=== PATIENT | female | born 1965 | race Two or more races ===

== ENCOUNTER → 2024-12-19 | Outpatient (CLI) | payer MEDICAID, SELFPAY ==
--- NOTE | 2024-12-19 17:19 | XR_ITS ---
Examination: Abdomen sonogram, complete Date and time of exam: December 19, 2024, 1722 hours Comparison February 19, 2024 INDICATIONS: Palpable lump in the upper abdomen 3 months. Technique: Multiple real-time grayscale transabdominal sonographic images of the abdomen have been obtained. Findings: Absent gallbladder Common bile duct 0.5 cm Pancreatic head 3.3 cm Aorta proximally visualized nonenlarged Mild hepatomegaly 17 cm fatty infiltration Normal hepatopedal portal venous flow Patent IVC Right kidney 10.3 cm cortex 1.6 cm Left kidney 11.4 cm and according to 0.0 cm Mild renal parenchymal scar formation Spleen 7.3 cm Possible hernia at the area of concern site in the anterior right upper abdominal wall IMPRESSION: Recommend CT scan abdomen post intravenous contrast follow-up to confirm hernia defect in the anterior upper right abdomen
== END | disposition home or self-care (01) ==
PROVIDERS: PCP Nurse Practitioner Family; Referring Provider Nurse Practitioner Family; Visit Provider Nurse Practitioner Family
DX: K46.9 Unspecified abdominal hernia without obstruction or gangrene (principal)
CPT/HCPCS: 76700

== ENCOUNTER → 2025-02-06 | Outpatient (CLI) | payer MEDICAID, SELFPAY ==
--- NOTE | 2025-02-06 | XR_ITS ---
Examination: Knee bilateral, 6 views Technique: Knee AP, lateral, oblique each knee total 6 views Date and time of exam: February 06, 2025 1348 hours INDICATIONS: Bilateral knee pain beginning 4 months ago. FINDINGS: Prominent osteopenia Advanced bilateral tricompartment osteoarthritis No fractures or dislocations IMPRESSION: Bilateral advanced tricompartment osteoarthritis
== END | disposition home or self-care (01) ==
LOC: CDIM 13:23
PROVIDERS: PCP Nurse Practitioner Family; Referring Provider Nurse Practitioner Family; Visit Provider Nurse Practitioner Family
DX: M17.0 Bilateral primary osteoarthritis of knee (principal)
CPT/HCPCS: 73562

== ENCOUNTER 2025-04-04 08:37 | Outpatient (AMB) | payer MEDICAID, SELFPAY ==
[2025-04-04 09:02] VITALS: BP 116/74; PULSE 95; RESP 18; TEMP 35.9; O2SAT 98; BMI 37.3
--- NOTE | 2025-04-04 09:02 | PD.ORTHCLVIS ---
Vital signs 04/04/25 09:02 Height 1.57 m Height Method Stated Weight 92.703 kg Weight Measurement Method Standing Scale BMI 37.3 BP 116/74 Blood Pressure Source Automatic Cuff Blood Pressure Location Left Upper Arm Position Sitting Respiration 18 Pulse 95 Pulse Source Monitor Temp 96.7 F L Temp Source Temporal Artery Scan Pulse Oximetry (%) 98 Oxygen Delivery Method Room Air Med/Allergies Allergies & Medications Allergies diclofenac Allergy (Severe, Verified 04/04/25 09:02) Hives Medication Reconciliation lisinopril 10 mg tablet 10 mg PO QDAY #30 tabs 04/12/20 [Rx Confirmed 04/04/25] metformin 500 mg tablet 1,000 mg (2 x 500 mg) PO BID 30 days #120 tabs 04/12/20 [Rx Confirmed 04/04/25] cyclobenzaprine 10 mg tablet 10 mg PO BID #14 tabs 09/18/23 [Rx Confirmed 04/04/25] meloxicam 7.5 mg tablet 7.5 mg PO QDAY #14 tabs 09/18/23 [Rx Confirmed 04/04/25] Exam Exam Patient is in no acute distress and is cooperative with the examination today. Breathing is nonlabored. In no respiratory distress. Bilateral extremities were evaluated and demonstrates sensation intact to light touch. Palpable pedal pulses are present. No significant edema is present. Bilateral hips were examined. The patient has no pain with log roll of the hips. Internal rotation to 30 degrees and external rotation to 30 degrees is painless. Negative FADIR. The left knee was examined. The left knee is in varus alignment. Range of motion from 0-115 degrees. Knee is stable to varus and valgus as well as AP translation with <5mm. Patient has a negative McMurrays. There is no pain with patellofemoral compression and no crepitus noted. The knee is tender to palpation medially. The right knee was also examined. The right knee is in varus alignment. Range of motion from 0-120 degrees. Knee is stable to varus and valgus as well as AP translation with <5mm. Patient has a negative McMurrays. There is no pain with patellofemoral compression and no crepitus noted. The knee is tender to palpation medially. X-rays demonstrates complete joint space narrowing medially and varus Assessment and Plan Problem List (1) Degenerative arthritis of knee, bilateral: Status: Acute Plan: Patient is a pleasant 59-year-old female with bilateral knee pain and bilateral knee arthritis. Her diabetes is well-controlled at 5.8. We discussed weight loss in great detail and she has made an attempt to lose weight. The pain is affecting her quality life for over a decade. We thus discussed total knee replacement is a reasonable option and we will start on the right as this is significantly loose The nature and purpose of the total knee replacement, alternative method(s) of treatment, the material risks involved, and the possibility of complications were fully explained to the patient. The patient does NOT have any of the following contraindications to TKA: - Active infection of the knee joint, OR - Active systemic bacteremia, OR - Active skin infection or open wound at surgical site, OR - Neuropathic arthritis, OR - Severe, rapidly progressive neurological disease, OR - Severe medical condition that makes risks of surgery outweigh the potential benefit The patient was told the most common risks and complications associated with a total knee replacement include, but are not limited to: blood clots in the leg, fatal pulmonary embolism, dislocation of the prosthesis, intraoperative and postoperative fractures of the femur or tibia, infection, failure of the prosthesis or grafting materials, complications from anesthesia, reactions to blood transfusions, postoperative leg length inequality, instability of the knee replacement, nerve damage or injury, vascular injury, delayed wound healing, infection, other injury or even . In addition, there are risks associated with anesthesia given during this operation. Also, the patient was told that after undergoing a total knee replacement there may still be persistent pain or disability. The patient was informed that the success of this operation in part depends upon the mechanical devices which are going to be implanted and that these devices can fail or malfunction, and may need to be repaired or replaced and there are no guarantees as to the longevity of this device or its parts and that it or its parts could fail prematurely. The patient was also notified that during the course of surgery, there may be a need to use bone graft from donors, and that any bone graft used will be carefully screened for communicable diseases, including AIDS, hepatitis, Figueroa-Creutzfeldt, or other diseases, but despite the screening procedures, there is a small chance that they could contract one of these diseases. Finally, the patient was asked to follow completely and fully with all advice and recommended treatments, and that recovery and ultimate outcome are affected by their compliance with recommended treatment. We discussed the risks, benefits and treatment alternatives, and the patient is interested in proceeding with surgery. We will try to set this up as expeditiously as possible. Office Procedures GNS Level of Care Nursing/Assessment Patient Status: Initial/New Patient Nursing Assessment/Reassesment: Medication Reconciliation, Update PMH in EMR and Vital Signs Coordination of Care: Complex Care and Chronic Disease 1-5, Education Complex Pt/Fam, Consent,records obtained, informed consent, 1 Ins Authorization, Lab and Imaging orders, Results/Orders obtained and Staff clarify orders Special Needs: Language special needs New Patient Charge New Patient Point Assignment: 1124 New Patient Point Charge: ETCHER ELECTROLYTIC Level 4 ([id number]) MA Intake Visit Data Collection New Patient or Established: New Patient (never been to [facility]) Reason for Visit:: BILATERAL KNEE PAIN Seen by Clinical Staff ONLY (RN/MA): No Head Orthopedic Team Physician Required: Yes PCP or OBGYN visit in last 3 months: Yes Hx Now: No Do You Feel Safe at Home: Yes Authorities Contacted: N/A Questionairres Past Medical History Past Medical History Have you ever been diagnosed with any of the following: Cardiology Problems Hypercholesterolemia: Yes Congestive Heart Failure: No Hypertension: Yes Hypotension: Yes Respiratory Problems Chronic Obstructive Pulmonary Disease (COPD): No Smoking: No Smoking Cessation Counseling: No Smoking Exposure: No Genital/Urinary Problems Renal Disease: No Endocrine Problems Diabetes Mellitus Type 1: Yes Diabetes Mellitus Type 2: No Hyperthyroidism: Yes Subjective Visit Visit for: new patient and knee (BILATERAL) Immunization / Flu Flu Vaccine in the Last 12 Months: No Flu Vaccine Exclusion Criteria: Refused by Patient History of Present Illness Chief complaint: BILATERAL KNEE PAIN Date of injury / onset of symptoms: 10+ YEARS Patient is a pleasant 59-year-old female with right greater than left knee pain that has been ongoing for over 20 years. Has progressively worsened. She has made an attempt to lose weight and has lost weight since her visit with her primary care doctor. She has tried multiple injections including over 3 in each knee as well as ibuprofen and diclofenac and home exercise program. The pain continues to increase. The pain is affecting her quality life happiness. Personal History Occupation: [employer] BMI Counceling provided: Yes Pain Pain level (0-10): 9 Pain duration: ALL DAY Pain location: inside (medial), outside (lateral) and anterior Pain quality: sharp, dull, aching and other (specify) (SWELLING) Pain timing: night, increases with activity and stairs Associated signs & symptoms: numbness and weakness Ambulatory data Ambulatory device: none Treatments Number of previous injections: 2 Improvement with previous injections: No Number of Physical Therapy sessions: 0 Improvement with PT: No Improvement with NSAIDS: no Review of Systems Review of Systems: All systems negative unless otherwise noted in HPI.
--- NOTE | 2025-04-04 09:03 | XR_ITS ---
Examination: Bilateral knees 2 views Right lateral knee left lateral knee 2 views Bilateral axial knees single view TECHNIQUE: Bilateral AP knees standing single view, bilateral PA knees standing single view flexion Standing right lateral knee left lateral knee 2 views Bilateral axial knees single view total 5 views Date and time: April 04, 2025 0915 hours INDICATIONS: Bilateral knee pain one year getting worse FINDINGS: Significant osteopenia Advanced narrowing [id number] medial joint spaces bilaterally Advanced osteoarthritis patellofemoral and lateral joint spaces No fractures IMPRESSION: Advanced bilateral tricompartment osteoarthritis including severe narrowing, [id number], medial joint spaces bilaterally
== END 2025-04-04 09:08 | disposition home or self-care (01) ==
PROVIDERS: PCP Nurse Practitioner Family; Referring Provider Nurse Practitioner Family; Supervising Provider Orthopaedic Surgery Adult Reconstructive Orthopaedic Surgery; Visit Provider Orthopaedic Surgery Adult Reconstructive Orthopaedic Surgery
DX: M17.0 Bilateral primary osteoarthritis of knee (principal); M25.562 Pain in left knee; M25.561 Pain in right knee; E78.00 Pure hypercholesterolemia, unspecified; I10 Essential (primary) hypertension; E10.9 Type 1 diabetes mellitus without complications
CPT/HCPCS: 73564; 99204; G0463

== ENCOUNTER → 2025-04-06 | Outpatient (CLI) | payer MEDICAID, SELFPAY ==
--- NOTE | 2025-04-06 | XR_ITS ---
Examination: PA chest single view TECHNIQUE: Upright PA chest single view Date and time: April 06, 2025 0755 hours INDICATIONS: Preop knee surgery, history chronic SOB COMPARISON: April 16, 2020 FINDINGS: Normal heart size. Lungs are clear. Moderate osteopenia IMPRESSION: No active disease.
== END | disposition home or self-care (01) ==
PROVIDERS: PCP Nurse Practitioner Family; Referring Provider Nurse Practitioner Family; Visit Provider Nurse Practitioner Family
DX: Z01.818 Encounter for other preprocedural examination (principal)
CPT/HCPCS: 71045

== ENCOUNTER → 2025-05-01 | Outpatient (CLI) | payer MEDICAID, SELFPAY ==
--- NOTE | 2025-05-01 12:00 | XR_ITS ---
Examination: CT right lower extremity, without contrast. 2-D sagittal reconstructions. 2-D coronal reconstructions. 3-D reconstructions. Date and time of exam:May 01, 2025 1114 hours INDICATIONS: Diagnosis primary unilateral osteoarthritis right knee, right knee pain 2 years CTDI: vol (mGy):11.1 DLP: (mGycm):757 Technique: Multiple 1.25 mm axial sections of the right lower extremity without intravenous contrast have been obtained. 2-D sagittal and coronal reconstructions have been obtained. 3-D reconstructions have been obtained. Low dose protocols were performed. One or more of the following dose reduction techniques were used; automated exposure control, adjustment of the mA and/or KV according to patient size, use of iterative reconstruction technique. Findings: Moderate osteopenia Mild to moderate narrowing right hip joint No right hip fracture or dislocation, no avascular necrosis Severe right knee tricompartment osteoarthritis Severe narrowing medial joint space right knee Prominent osteopenia No fracture or dislocation IMPRESSION: Severe right knee tricompartment osteoarthritis
== END | disposition home or self-care (01) ==
PROVIDERS: PCP Nurse Practitioner Family; Referring Provider Orthopaedic Surgery Adult Reconstructive Orthopaedic Surgery; Visit Provider Orthopaedic Surgery Adult Reconstructive Orthopaedic Surgery
DX: M17.11 Unilateral primary osteoarthritis, right knee (principal)
CPT/HCPCS: 73700

== ENCOUNTER 2025-05-02 13:56 | Outpatient (AMB) | payer MEDICAID, SELFPAY ==
--- NOTE | 2025-05-02 14:36 | PD.ORTHCLVIS ---
Vital signs 05/02/25 14:37 Height 1.57 m Height Method Measured Weight 89.528 kg Weight Measurement Method Standing Scale BMI 36.3 BP 120/81 Blood Pressure Source Automatic Cuff Blood Pressure Location Left Upper Arm Position Sitting Respiration 18 Pulse 88 Pulse Source Monitor Temp 97.7 F Temp Source Temporal Artery Scan Pulse Oximetry (%) 94 L Oxygen Delivery Method Room Air Med/Allergies Allergies & Medications Allergies diclofenac Allergy (Severe, Verified 05/02/25 14:38) Hives Medication Reconciliation lisinopril 10 mg tablet 10 mg PO QDAY #30 tabs 04/12/20 [Rx Confirmed 05/02/25] metformin 500 mg tablet 1,000 mg (2 x 500 mg) PO BID 30 days #120 tabs 04/12/20 [Rx Confirmed 05/02/25] cyclobenzaprine 10 mg tablet 10 mg PO BID #14 tabs 09/18/23 [Rx Confirmed 05/02/25] meloxicam 7.5 mg tablet 7.5 mg PO QDAY #14 tabs 09/18/23 [Rx Confirmed 05/02/25] Exam Exam Patient is in no acute distress and is cooperative with the examination today. Breathing is nonlabored. In no respiratory distress. Bilateral extremities were evaluated and demonstrates sensation intact to light touch. Palpable pedal pulses are present. No significant edema is present. Bilateral hips were examined. The patient has no pain with log roll of the hips. Internal rotation to 30 degrees and external rotation to 30 degrees is painless. Negative FADIR. The left knee was examined. The left knee is in varus alignment. Range of motion from 0-115 degrees. Knee is stable to varus and valgus as well as AP translation with <5mm. Patient has a negative McMurrays. There is no pain with patellofemoral compression and no crepitus noted. The knee is tender to palpation medially. The right knee was also examined. The right knee is in varus alignment. Range of motion from 0-120 degrees. Knee is stable to varus and valgus as well as AP translation with <5mm. Patient has a negative McMurrays. There is no pain with patellofemoral compression and no crepitus noted. The knee is tender to palpation medially. X-rays demonstrates complete joint space narrowing medially and varus Assessment and Plan Problem List (1) Degenerative arthritis of knee, bilateral: Status: Acute Plan: Patient is a pleasant 59-year-old female with bilateral knee pain and bilateral knee arthritis. Her diabetes is well-controlled at 5.8. We discussed weight loss in great detail and she has made an attempt to lose weight. The pain is affecting her quality life for over a decade. We thus discussed total knee replacement is a reasonable option and we will start on the right. The nature and purpose of the total knee replacement, alternative method(s) of treatment, the material risks involved, and the possibility of complications were fully explained to the patient. The patient does NOT have any of the following contraindications to TKA: - Active infection of the knee joint, OR - Active systemic bacteremia, OR - Active skin infection or open wound at surgical site, OR - Neuropathic arthritis, OR - Severe, rapidly progressive neurological disease, OR - Severe medical condition that makes risks of surgery outweigh the potential benefit The patient was told the most common risks and complications associated with a total knee replacement include, but are not limited to: blood clots in the leg, fatal pulmonary embolism, dislocation of the prosthesis, intraoperative and postoperative fractures of the femur or tibia, infection, failure of the prosthesis or grafting materials, complications from anesthesia, reactions to blood transfusions, postoperative leg length inequality, instability of the knee replacement, nerve damage or injury, vascular injury, delayed wound healing, infection, other injury or even . In addition, there are risks associated with anesthesia given during this operation. Also, the patient was told that after undergoing a total knee replacement there may still be persistent pain or disability. The patient was informed that the success of this operation in part depends upon the mechanical devices which are going to be implanted and that these devices can fail or malfunction, and may need to be repaired or replaced and there are no guarantees as to the longevity of this device or its parts and that it or its parts could fail prematurely. The patient was also notified that during the course of surgery, there may be a need to use bone graft from donors, and that any bone graft used will be carefully screened for communicable diseases, including AIDS, hepatitis, Figueroa-Creutzfeldt, or other diseases, but despite the screening procedures, there is a small chance that they could contract one of these diseases. Finally, the patient was asked to follow completely and fully with all advice and recommended treatments, and that recovery and ultimate outcome are affected by their compliance with recommended treatment. We discussed the risks, benefits and treatment alternatives, and the patient is interested in proceeding with surgery. We will try to set this up as expeditiously as possible. Office Procedures GNS Level of Care Nursing/Assessment Patient Status: Established Patient Nursing Assessment/Reassesment: Medication Reconciliation, Orthostatic Vitals and Update PMH in EMR Coordination of Care: Complex Care and Chronic Disease 1-5, Education Complex Pt/Fam, Consent,records obtained, informed consent, Results/Orders obtained and Staff clarify orders Special Needs: Language special needs Established Patient Charge Established Patient Point Assignment: 90 Established Patient Point Charge: EP Level 3 (80-115) MA Intake Visit Data Collection New Patient or Established: Established Patient (seen at [facility] within 3 years) Reason for Visit:: PRE OP RIGHT TKA Seen by Clinical Staff ONLY (RN/MA): No Steamship Agent Required: Yes PCP or OBGYN visit in last 3 months: Yes Hx Now: No Do You Feel Safe at Home: Yes Authorities Contacted: N/A Questionairres Past Medical History Past Medical History Have you ever been diagnosed with any of the following: Cardiology Problems Hypercholesterolemia: Yes Congestive Heart Failure: No Hypertension: Yes Hypotension: Yes Respiratory Problems Chronic Obstructive Pulmonary Disease (COPD): No Smoking: No Smoking Cessation Counseling: No Smoking Exposure: No Genital/Urinary Problems Renal Disease: No Endocrine Problems Diabetes Mellitus Type 1: Yes Diabetes Mellitus Type 2: No Hyperthyroidism: Yes Subjective Visit Visit for: follow up visit and knee Immunization / Flu Flu Vaccine in the Last 12 Months: No Flu Vaccine Exclusion Criteria: Refused by Patient History of Present Illness Chief complaint: BILATERAL KNEE PAIN Date of injury / onset of symptoms: 10+ YEARS Patient is a pleasant 59-year-old female with right greater than left knee pain that has been ongoing for over 20 years. Has progressively worsened. She has made an attempt to lose weight and has lost weight since her visit with her primary care doctor. She has tried multiple injections including over 3 in each knee as well as ibuprofen and diclofenac and home exercise program. The pain continues to increase. The pain is affecting her quality life and happiness. Personal History Occupation: [employer] BMI Counceling provided: Yes Additional comments: WALKER WAS GIVEN TO PT FOR SX Pain Pain level (0-10): 9 Pain duration: ALL DAY Pain location: inside (medial), outside (lateral) and anterior Pain quality: sharp, dull, aching and other (specify) (SWELLING) Pain timing: night, increases with activity and stairs Associated signs & symptoms: numbness and weakness Ambulatory data Ambulatory device: none Treatments Number of previous injections: 2 Improvement with previous injections: No Number of Physical Therapy sessions: 0 Improvement with PT: No Improvement with NSAIDS: no Review of Systems Review of Systems: All systems negative unless otherwise noted in HPI.
[2025-05-02 14:37] VITALS: BP 120/81; PULSE 88; RESP 18; TEMP 36.5; O2SAT 94; BMI 36.3
== END 2025-05-02 14:46 | disposition home or self-care (01) ==
PROVIDERS: PCP Nurse Practitioner Family; Referring Provider Nurse Practitioner Family; Supervising Provider Orthopaedic Surgery Adult Reconstructive Orthopaedic Surgery; Visit Provider Orthopaedic Surgery Adult Reconstructive Orthopaedic Surgery
DX: M17.0 Bilateral primary osteoarthritis of knee (principal); M25.562 Pain in left knee; M25.561 Pain in right knee; I10 Essential (primary) hypertension; E78.00 Pure hypercholesterolemia, unspecified; E10.9 Type 1 diabetes mellitus without complications
CPT/HCPCS: 99213; G0463

== ENCOUNTER 2025-05-08 07:05 | Day surgery (SDC) | payer MEDICAID, SELFPAY ==
[2025-05-04 07:01] VITALS: BMI 37.2
[2025-05-04 08:15] LABS: Basophils # (Auto) 0.0 Thou/mm3 (0.0-0.2); Basophils % (Auto) 0 % (0-2.5); Eosinophils # (Auto) 0.0 Thou/mm3 (0.0-0.5); Eosinophils % (Auto) 0 % (0-10); Hematocrit 42.6 % (36.0-46.0); Hemoglobin 14.5 g/dL (12.0-16.0); Immature Granulocytes Auto 0.29 Thou/mm3 (0.00-0.00); Lymphocytes # (Auto) 2.5 Thou/mm3 (1.0-4.8); Lymphocytes % (Auto) 24 % (10-50); Mean Corpuscular HGB Conc 34.0 g/dl (31.0-37.0); Mean Corpuscular Hemoglobin 33.3 pg (25.0-35.0); Mean Corpuscular Volume 98 fL (80-100); Monocytes # (Auto) 0.8 Thou/mm3 (0.0-0.8); Monocytes % (Auto) 8 % (0-12); Neutrophils # (Auto) 6.7 Thou/mm3 (1.8-7.7); Neutrophils % (Auto) 65 % (37-80); Nucleated Red Blood Cell # 0.00 Thou/mm3 (0.00-0.00); Nucleated Red Blood Cell % 0 /100 WBC (0); Platelet Count 264 Thou/mm3 (140-440); RDW Standard Deviation 47.1 fL (36.4-46.3); Red Blood Count 4.36 Miln/mm3 (4.00-5.20); White Blood Count 10.3 Thou/mm3 (3.6-11.0)
[2025-05-04 08:34] LABS: Alanine Aminotransferase 39 U/L (10-49); Albumin, Serum 4.3 gm/dL (3.5-5.0); Albumin/Globulin Ratio 2.0 (1.2-2.2); Alkaline Phosphatase 98 U/L (46-116); Anion Gap 9 (7-16); Aspartate Amino Transferase 23 U/L (0-34); BUN/Creatinine Ratio 17 Ratio (12-20); Bilirubin,Total 0.3 mg/dL (0.3-1.2); Blood Urea Nitrogen 10 mg/dL (9-23); Calcium 9.5 mg/dL (8.3-10.6); Calcium (Corrected) 9.5 mg/dL (8.5-10.1); Carbon Dioxide 27.7 mMol/L (20.0-31.0); Chloride 107 mMol/L (98-107); Creatinine (Component) 0.6 mg/dL (0.6-1.3); Estimated Creatinine Clearance 102.7 mL/min (>60); Globulin 2.1 gm/dL (2.3-3.5); Glucose 137 mg/dL (74-106); Osmolality,Calculated 287 (275-295); Potassium 4.0 mMol/L (3.4-5.1); Sodium 144 mMol/L (136-145); Total Protein 6.4 gm/dL (5.7-8.2); eGFR > 60 See Note
[2025-05-04 10:01] LABS: INR 0.9 (0.9-1.3); Partial Thromboplastin Time 21.5 Seconds (22.0-36.0); Prothrombin Time 10.2 Seconds (9.0-12.2)
[2025-05-08] VITALS (16 sets, daily range): BP systolic 105–157; BP diastolic 58–90; PULSE 65–85; RESP 12–20; TEMP 36.3–37; O2SAT 96–100; BMI 37.4; BMI 13.0
--- NOTE | 2025-05-08 07:47 | XR_ITS ---
Examination: Right knee 2 views Technique one AP lateral right knee 2 views Date and time: May 08, 2025 1128 hours INDICATIONS: Postop knee replacement today FINDINGS: Total right knee arthroplasty. Satisfactory alignment. No fracture. Prominent osteopenia. IMPRESSION: Total right knee arthroplasty with satisfactory alignment
[2025-05-08] MEDS: RINGERS LACTATED 1000 ML 1,000 ML 20 ML IV (08:02)
[2025-05-08] MEDS: ACETAMINOPHEN 325 MG TABLET 650 MG PO (08:03)
[2025-05-08] MEDS: PREGABALIN 75 MG CAPSULE PO (08:04)
--- NOTE | 2025-05-08 08:17 | SUR.PREOP ---
Patient expressed gratitude for prayer before their procedure.
--- NOTE | 2025-05-08 10:29 | ESOP_ITS ---
Date of Procedure 05/08/25 Pre Op Diagnosis right knee osteoarthritis Post Op Diagnosis right knee osteoarthritis Procedure right total knee replacement papa Findings full thickness cartilage loss and osteophytes Procedure Description Indication: The patient has a long history of right knee pain. X-rays show degenerative arthritis involving the knee. Over the past several years the patient has had increasing pain, progressive limitation in function. He has failed conservative measures including activity modification, physical therapy, injections, anti- inflammatories, and assistive devices. After a lengthy discussion of the risks and benefits, the patient presents now for total knee replacement. The nature and purpose of the total knee replacement, alternative method(s) of treatment, the material risks involved, and the possibility of complications were fully explained to the patient. The patient was told the most common risks and complications associated with a total knee replacement include, but are not limited to blood clots in the leg, fatal pulmonary embolism, dislocation of the prosthesis, intraoperative and postoperative fractures of the femur or tibia, infection, failure of the prosthesis or grafting materials, complications from anesthesia, reactions to blood transfusions, postoperative leg length inequality, instability of the knee replacement, nerve damage or injury, vascular injury, delayed wound healing, infections, other injury or even . In addition, there are risks associated with anesthesia given during this operation, temporary or permanent numbness on the skin lateral to the incision can be a complication unique to total knee surgery, and kneeling can be painful after knee replacement surgery. Also, the patient was told that after undergoing a total knee replacement there may still be pain or disability. We discussed with the patient that we will be using a robot-assisted technology. We discussed that there is a possibility of converting to manual instrumentation. The patient was informed that the success of this operation in part depends upon the mechanical devices which are going to be implanted and that these devices can fail or malfunction, and may need to be repaired or replaced and there are no guarantees as to the longevity of this device or its part and that it or its parts could fail prematurely. Finally, the patient was asked to follow completely and fully with all advice and recommended treatments, and that recovery and ultimate outcome are affected by their compliance with recommended treatment. Surgical technique: Patient was marked and consented in the pre-operative area. The patient was brought to the operating room and placed on the operating table in a supine position. Prior to positioning, a timeout procedure was performed between the surgeon, the anesthesiologist, and the nursing staff where the patient and the operative side were identified and confirmed. After adequate general anesthetic was obtained, the right lower extremity was prepped and draped in the usual sterile fashion. A weight based dose of Cefazolin were administered within 1 hour prior to incision. The robot was preregistered and calibrated before the incision. The extremity was exsanguinated with an esmarch badge and tourniquet inflated to 250mmHg. A midline incision was made. A median parapatellar arthrotomy was made. The patella was subluxed laterally. A medial release was performed to expose the medial tibia. His femoral and tibial pins were placed through an intra incisional manner for both cases. Every effort was made to ensure that the distalmost aspect of the pin was hung in the second cortex. The arrays were then tightened several times to ensure that it was fixed for the remainder of the case. Both femoral and tibial checkpoints were then placed. We then went through the registration process of the bone. We then assessed the knee deformity and attempted to correct it. We also used the robot to aid in judging laxity in both extension and flexion. Final based on laxity and alignment we changed the preoperative assessment to obtain proper proper implant positioning and to correct deformity. Attention was then placed to the tibia. We made a tibial cut using the robot ensuring that both the MCL and the patella tendon were protected with retractors. We then went to the femur and made the posterior cut followed by the anterior cut and the anterior chamfer. The bone was then removed and we made a distal femur cut and a posterior chamfer cut. We verified all cuts. A trial reduction was performed with a size 3 femoral component and a size 2 keeled tibial component. T The patella tracked centrally, and no lateral retinacular release was necessary. The trial implants were removed. The arrays, pins, and checkpoints were all removed. We performed a verification that all p ins were removed. The cut bone surfaces were lavaged. A size 3 right femoral component, a size 2 keeled tibial component were impacted into position. The knee was felt to be well balanced in the sagittal and coronal plane. The final 2x11 mm cruciate- substituting articular insert was impacted into the tibial tray. The knee was brought out to full extension, flexed up to 120 degrees. It was stable to varus and valgus stress and appropriately balanced in flexion and extension. The wounds were copiously irrigated following deflation of tourniquet. The medial retinaculum was reapproximated with #1 vicryl and quill. The subcutaneous tissues were closed with 0 and 2-0 interrupted Vicryl. The skin was closed with 3-0 Monofilament V loc suture. A sterile dressing was applied. The patient was transferred to a bed and brought to recovery in stable condition. The patient tolerated the procedure well. There were no intraoperative complications. Sponge and needle counts were correct times 2. As the attending surgeon, I attbianca I was present and performed the entire operation. Grafts/Implants Size 3 CR Femur Size 2 Tibia 11mm poly CS Anesthesia spinal Pathology / specimen None Pathology comment: none Estimated Blood Loss 150 Condition Stable Disposition same day Surgeon Rafiq Miller MD Surgical Staff Operation Date: 05/08/25 09:45 Case Staff Anesthesiologist: Ariel Weiner RN First Assistant: Dulce Lora
--- NOTE | 2025-05-08 10:51 | SUR.PHASEI ---
pt received from OR in recovery bay 3. pt asleep but responds to voice, breathing unlabored on oxymask 4l. v/s stable. pt dressing to right lower extremity cdi. report received from Stephane HOFF and Aníbal BADILLO.
[2025-05-08] MEDS: fentaNYL CIT INJ 50 mCg/ML AMP 2ML 25 MCG IVP ×3 (12:26→14:51)
--- NOTE | 2025-05-08 12:35 | SUR.PHASEII ---
pt able to tolerate oral fluids without difficulty swallowing or nausea/vomiting.
[2025-05-08] MEDS: HYDROmorphone INJ 2 MG/ML VIAL 0.4 MG IVP (12:37)
--- NOTE | 2025-05-08 13:00 | SUR.PHASEII ---
pt c/o bladder pain, bladder scan performed 805ml shown on scan. Dr. Miller informed. New orders received for in and out cath.
--- NOTE | 2025-05-08 15:26 | SUR.PHASEII ---
pt awake and alert, breathing unlabored on room air. v/s stable. pt dressing to right lower extremity cdi. pt cleared by physical therapaist Janie. Pt able to ambulate to pacu bathroom with walker. d/c instructions given with Kalin in room using per diem interpreter Sherie [id number], all questions answered. pt d/c via wheelchair with all belongings.
== END 2025-05-08 15:26 | disposition home or self-care (01) ==
PROVIDERS: Anesthesiology; PCP Nurse Practitioner Family; Referring Provider Orthopaedic Surgery Adult Reconstructive Orthopaedic Surgery; Visit Provider Orthopaedic Surgery Adult Reconstructive Orthopaedic Surgery
PROC: (CPT 27447; principal; 2025-05-08 09:30)
DX: M17.11 Unilateral primary osteoarthritis, right knee (principal); M25.761 Osteophyte, right knee
CPT/HCPCS: 27447; 20985; 36415; 73560; 80053; 85025; 85610; 85730; 97162; A4217; A4649; C1713; C1776; J0690; J1171; J1885; J2250; J2371; J2704; J2795; J3010; J3490; J7120; J7999; A4648; A9270

== ENCOUNTER 2025-05-15 18:37 | Inpatient (IN) | payer MEDICAID, SELFPAY ==
[2025-05-15 19:12] VITALS: BP 122/84; PULSE 97; RESP 20; TEMP 36.9; O2SAT 97
--- NOTE | 2025-05-15 19:20 | XR_ITS ---
Examination: CT abdomen and pelvis without contrast. Coronal 3-D reconstructions. Sagittal 2-D reconstructions. Date and time of exam:May 15, 2025, 1930 hrs. Indications: Onset abdominal pain today CTDI: vol (mGy): 11.4 DLP: (mGycm): 633 Technique: Axial images of the abdomen have been obtained, 3 mm slice thickness Intravenous contrast material has not been administered. Low dose protocols were performed. One or more of the following dose reduction techniques were used; automated exposure control, adjustment of the mA and/or KV according to patient size, use of iterative reconstruction technique. Findings: No focal liver or splenic lesions No extra hepatic biliary tract dilatation No pancreatic or adrenal mass Aorta normal size Perinephric stranding No renal or ureteral calculi, no hydronephrosis No pericecal inflammatory change No bowel obstruction No diverticulitis Normal appendix No pelvic mass Atrophic anteverted uterus Significant osteopenia Advanced degenerative disc disease L4-L5 Intact urinary bladder Impression: Perinephric stranding, consider urinary tract infection No renal or ureteral calculi, no hydronephrosis Normal appendix No bowel obstruction or diverticulitis
--- NOTE | 2025-05-15 19:20 | PD.EDRME ---
Rapid Medical Screening Exam E Arrival date/time: 05/15/25 18:37 This is a case of 59-year-old female with no medical history came in in the emergency room due to generalized abdominal pain nausea vomiting for 4 days worsening of the symptoms this patient decided to start consult here in the emergency room Chief Complaint: Abdominal Pain Vital signs: Vital Signs Temperature 98.5 F 05/15/25 19:12 Pulse Rate 97 05/15/25 19:12 Respiratory Rate 20 05/15/25 19:12 Blood Pressure 122/84 05/15/25 19:12 Pulse Oximetry (%) 97 05/15/25 19:12 Oxygen Delivery Method Room Air 05/15/25 19:12
[2025-05-15 20:19] LABS: Basophils # (Auto) 0.0 Thou/mm3 (0.0-0.2); Basophils % (Auto) 0 % (0-2.5); Eosinophils # (Auto) 0.1 Thou/mm3 (0.0-0.5); Eosinophils % (Auto) 2 % (0-10); Hematocrit 35.4 % (36.0-46.0); Hemoglobin 12.4 g/dL (12.0-16.0); Immature Granulocytes Auto 0.10 Thou/mm3 (0.00-0.00); Lymphocytes # (Auto) 1.3 Thou/mm3 (1.0-4.8); Lymphocytes % (Auto) 19 % (10-50); Mean Corpuscular HGB Conc 35.0 g/dl (31.0-37.0); Mean Corpuscular Hemoglobin 32.0 pg (25.0-35.0); Mean Corpuscular Volume 92 fL (80-100); Monocytes # (Auto) 0.6 Thou/mm3 (0.0-0.8); Monocytes % (Auto) 9 % (0-12); Neutrophils # (Auto) 4.7 Thou/mm3 (1.8-7.7); Neutrophils % (Auto) 69 % (37-80); Nucleated Red Blood Cell # 0.00 Thou/mm3 (0.00-0.00); Nucleated Red Blood Cell % 0 /100 WBC (0); Platelet Count 310 Thou/mm3 (140-440); RDW Standard Deviation 42.3 fL (36.4-46.3); Red Blood Count 3.87 Miln/mm3 (4.00-5.20); White Blood Count 6.8 Thou/mm3 (3.6-11.0)
[2025-05-15 20:39] LABS: Alanine Aminotransferase 39 U/L (10-49); Albumin, Serum 3.9 gm/dL (3.5-5.0); Albumin/Globulin Ratio 1.6 (1.2-2.2); Alkaline Phosphatase 87 U/L (46-116); Anion Gap 11 (7-16); Aspartate Amino Transferase 30 U/L (0-34); BUN/Creatinine Ratio 8 Ratio (12-20); Bilirubin,Total 0.9 mg/dL (0.3-1.2); Blood Urea Nitrogen < 5 mg/dL (9-23); Calcium 9.6 mg/dL (8.3-10.6); Calcium (Corrected) 9.7 mg/dL (8.5-10.1); Carbon Dioxide 24.9 mMol/L (20.0-31.0); Chloride 97 mMol/L (98-107); Creatinine (Component) 0.6 mg/dL (0.6-1.3); Globulin 2.4 gm/dL (2.3-3.5); Glucose 179 mg/dL (74-106); Lipase 30 U/L (12-53); Osmolality,Calculated 267 (275-295); Potassium 3.0 mMol/L (3.4-5.1); Sodium 133 mMol/L (136-145); Total Protein 6.3 gm/dL (5.7-8.2); eGFR > 60 See Note
[2025-05-15 21:33] LABS: Collection Type, Urine Clean Catch
--- NOTE | 2025-05-15 21:40 | EDNOTE_ITS ---
ED Abdominal Pain RME/HPI General Chief Complaint: Abdominal Pain Stated complaint: ABD PAIN Arrival date/time: 05/15/25 18:37 RME / HPI RME / HPI narrative: 05/15/25 18:37 This is a case of 59-year-old female with no medical history came in in the emergency room due to generalized abdominal pain nausea vomiting for 4 days worsening of the symptoms this patient decided to start consult here in the emergency room DR. LEMON MAIN ED EVALUATION: Patient with Hx of DM, HTN, and remote peptic ulcer presents with epigastric abdominal pain and persistent emesis for 4 days duration. No hematesis or melena. Denies fever or chills. No reported urinary frequency, urgency, or dysuria. PMH: Peptic Ulcer Disease, DM, HTN PSH: Non-contributory. Allergies: Diclofenac. Social: Negative for alcohol, tobacco, and illicit drug abuse. Related Data Home Medications ?Medication ?Instructions ?Recorded ?Confirmed atorvastatin 20 mg tablet 20 mg PO QDAY 05/04/2505/16 pantoprazole 40 mg tablet,delayed 40 mg PO QAM 5 05/16/25 release (Protonix) sitagliptin phosphate 100 mg 100 mg PO QDAY 05/04/25 0 05/16/25 tablet (Januvia) Previous Rx's ?Medication ?Instructions ?Recorded acetaminophen 500 mg tablet 1,000 mg (2 x 500 mg) PO Q 6H PRN 05/08/25 (Acetaminophen Extra Strength) pain #90 tabs aspirin 81 mg tablet,delayed 81 mg PO BID #60 tabs release metformin 500 mg tablet,extended 500 mg PO QDAY Diabet es Mellitus 05/17/25 release 24 hr (Glucophage XR) Type II 1 month #30 tabs Allergies Allergy/AdvReac Type Severity Reaction Status Date / Time diclofenac Allergy Severe Hives Verified 05/15/25 18:41 Review of Systems Review of Systems Systems Reviewed: All systems reviewed, normal except as documented Past Medical History Past Medical History CARDIAC: Positive Cardiac Disorders, Hypercholesterolemia, Hypertension and Hypotension GASTROINTESTINAL: Positive Gastrointestinal Disorders (fatty liver) and Obesity MUSCULOSKELETAL: Positive Musculoskeletal Disorders and Arthritis ENT: Positive Cataracts (right) and Deafness ([place]) ENDOCRINE: Positive Endocrine Disorders, Diabetes Mellitus Type 1, Hyperthyroidism and Hypothyroidism OTHER HISTORY: Positive Chicken Pox, Measles and Mumps Family History FAMILY HISTORY: Positive Family Surgery Surgical History SURGICAL: Positive Ear Surgery (Bilateral in [place]), Abdominal Surgery and Section (x2) ED Exam Narrative Physical exam: GEN. APPEARANCE: The patient is alert awake oriented X-3 in no distress, lying down comfortably, does not look ill/toxic. Patient has good eye contact. Patient is cooperative. C/o nausea and epigastric abdominal pain. VITALS: All vitals were reviewed and the pulse ox is 97% on room air which is normal according to my interpretation. HEENT: Normocephalic, atraumatic. Pupils are equal and reactive. Oral mucosa is moist. Patent Nares NECK: Supple, nontender, no thyromegaly, no meningismus, no JVD, no step offs CHEST: Symmetrical, atraumatic, and with equal expansion , Nontender on palpation no deformity and no crepitus. CARDIOVASCULAR: Heart regular rhythm no murmur or gallop rub or extra beats. LUNGS: Clear to auscultation bilaterally with symmetrical chest rise. No laboring tachypnea or wheezing. No intercostal subcostal retraction. No rales and no rhonchi. ABDOMEN: Soft, obese, noted TTP in epigastrium and periumbilical region, slight gaurding with no gross peritoneal findings. There are no abnormal masses palpated. Active and normal bowel sounds. EXTREMITIES: Nontender. No edema. No cyanosis. Patient is able to move all 4 extremities well, with full ROM and good CSM. SKIN: Warm and dry, no jaundice or rashes noted. MUSCULOSKELETAL: No lubar or midline bony tenderness. There is no CVA ten derness. No paraspinal muscle spasm or tenderness. NEURO: Patient is ADAM x 4, Cranial nerves II through XII grossly intact. There is no focal neurologic deficits noted. GCS is 15, PNS and [employer] appear grossly intact. PSYCHIATRIC: Patient is in normal mood and affect, cooperative, no SI or HI or hallucinations. Course Quality Measures none Orders Category Date Time Status Bedside COVID-19 Antigen Test NOW Care 05/15/25 22:23 Active Bedside Influenza A&B Antigen Test NOW Care 05/15/25 23:28 Completed COVID-19 Screening Questionnaire NOW Care 05/15/25 22:09 Active IV [Insert IV] NOW Care 05/15/25 22:[address] abdomen pelvis wo con Stat Exams 05/15/25 19:20 Completed CBC Stat Lab 05/15/25 20:10 Completed Comprehensive Metabolic Panel Stat Lab 05/15/25 20:10 Completed Lipase Stat Lab 05/15/25 20:10 Completed Urinalysis Stat Lab 05/15/25 21:25 Completed Morphine* Inj Med 05/15/25 21:56 Discontinued 4 mg IM X1 ONE Morphine* Inj Med 05/15/25 21:59 Discontinued 4 mg IVP X1 ONE POTASSIUM CHL 10 mEq IVPB [Kcl Ivpb] Med 05/15/25 22:37 Discontinued 10 meq in 100 ml IV Q1H Prochlorperazine Inj [Compazine Inj] Med 05/15/25 21:56 Discontinued 2.5 mg IM X1 ONE Prochlorperazine Inj [Compazine Inj] Med 05/15/25 21:59 Discontinued 2.5 mg IV X1 ONE cefTRIAXone/D5w 1gm IV premix [Rocephin/D5w 1gm IV Med 05/15/25 21:57 Discontinued premix] 1 gm in 50 ml IV X1 Vital Signs Vital signs: Vital Signs Temperature 98.5 F 05/15/25 19:12 Pulse Rate 97 05/15/25 19:12 Respiratory Rate 20 05/15/25 19:12 Blood Pressure 122/84 05/15/25 19:12 Pulse Oximetry (%) 97 05/15/25 19:12 Oxygen Delivery Method Room Air 05/15/25 19:12 Abdominal Pain MDM MDM Narrative MDM Narrative:: Scribe Attestation: IGeorgina am scribing for and in the presence of Dr. Lemon. Provider Notation: Although this document has been carefully reviewed, there may still be some phonetic and other typographical errors. These errors are purely grammatical due to imperfections in the software program and should not be construed in any way to compromise the substance of the patient's medical care during this visit. Patient with Hx of DM, HTN, and remote peptic ulcer presents with epigastric abdominal pain and persistent emesis for 4 days duration. No hematesis or melena. Denies fever or chills. Please see PE findings. Laboratory markers demonstrated normal WBC, no sign anemia or thrombocytopenia. Serum chemistries essentially unremarkable, but notable for hypokalemia with potassium of 3.0. UA with equivocal UTI. Patient was placed on monitor, IV established low-dose narcotics/anti-emetics with mild to moderaate relief. CT was obtained demonstrating perinephric edema. Patient received imperic ABX and hospitalist consulted for possible admission. Symptoms may in part be related to gastritis vs peptic ulcer disease. Patient admitted to medicine service. Final diagnoses include Hypokalemia, Gastritis, and Ascending UTI. Patient data External records reviewed:: [facility] previous records (Reviewed prior ED records from 09/18/23. Patient was seen for Arm paresthesia, left.) Clinical information provided by:: patient Social determinants that could affect healthcare access:: none Patient has the following chronic illnesses:: Hypercholesterolemia, Hypertension, Hypotension, Fatty Liver, Obesity, Arthritis, Cataracts, Deafness, Diabetes Mellitus Type 1, Hyperthyroidism, Hypot hyroidism How is presenting disease/condition affected by chronic disease/condition?: exacerbated by Evaluation data The following diagnostics were reviewed and interpreted by me:: lab results and radiology exam(s) Lab and/or radiology exams considered but not ordered:: None Interpretation Summary: RADIOLOGY Abdomen/Pelvis CT: Findings: No focal liver or splenic lesions No extra hepatic biliary tract dilatation No pancreatic or adrenal mass Aorta normal size Perinephric stranding No renal or ureteral calculi, no hydronephrosis No pericecal inflammatory change No bowel obstruction No diverticulitis Normal appendix No pelvic mass Atrophic anteverted uterus Significant osteopenia Advanced degenerative disc disease L4-L5 Intact urinary bladder Impression: Perinephric stranding, consider urinary tract infection No renal or ureteral calculi, no hydronephrosis Normal appendix No bowel obstruction or diverticulitis Medications / Prescriptions Medications or Prescriptions considered but not ordered:: None Medication administrations:: Medication Administration History Acetaminophen (Acetaminophen 325 Mg Tablet) 650 mg PO Q4HR PRN PRN Reason: Fever >100.4 and pain 1-3 Stop: 06/15/25 01:03 Last Admin: 05/18/25 07:46 Dose: 650 mg Documented By: Admin: 05/18/25 03:29 Dose: 650 mg Documented By: Admin: 05/17/25 17:41 Dose: 650 mg Documented By: Admin: 05/17/25 04:24 Dose: 650 mg Documented By: Admin: 05/16/25 10:06 Dose: 650 mg Documented By: MI Aspirin (Aspirin Ec 81 Mg Tabec) 81 mg PO BID DON Stop: 06/15/25 13:59 Last Admin: 05/17/25 21:04 Dose: 81 mg Documented By: Admin: 05/17/25 09:23 Dose: 81 mg Documented By: Admin: 05/16/25 21:29 Dose: 81 mg Documented By: Admin: 05/16/25 15:23 Dose: 81 mg Documented By: MI Atorvastatin Calcium (Atorvastatin Calcium 20 Mg Tablet) 20 mg PO QDAY DON Stop: 06/15/25 08:59 Last Admin: 05/17/25 09:23 Dose: 20 mg Documented By: Admin: 05/16/25 08:25 Dose: 20 mg Documented By: MI Dextrose (Dextrose 50%-Water Inj 50 Ml Syringe) 25 ml IV Q15MIN PRN PRN Reason: BG 50-70 responsive npo pt Stop: 06/15/25 01:07 Dextrose (Dextrose 50%-Water Inj 50 Ml Syringe) 50 ml IV Q15MIN PRN PRN Reason: BG <50 OR BG <70 & pt unresponsive Stop: 06/15/25 01:07 Glucagon (Glucagon Inj 1 Mg Vial) 1 mg IM Q15MIN PRN PRN Reason: BG <70, and no IV access Ceftriaxone Sodium/Dextrose (Rocephin/D5w 1gm Iv Premix) 1 gm in 50 mls @ 100 mls/hr IV QDAY DON Stop: 05/23/25 08:59 Last Admin: 05/17/25 09:24 Dose: 100 mls/hr Documented By: Infusion: 05/16/25 08:55 Dose: Infused Documented By: Admin: 05/16/25 08:25 Dose: 100 mls/hr Documented By: MI Magnesium Sulfate (Magnesium Sulfate Ivpb) 4 gm in 50 mls @ 12.5 mls/hr IV X1 ONE Stop: 05/18/25 12:37 Insulin Degludec (Insulin Degludec 5 Unit/0.05 Ml (Per 5 Units)) 5 unit SC QDAY [facility] Stop: 06/16/25 08:59 Last Admin: 05/17/25 09:24 Dose: 5 unit Documented By: PP Co-signed By: CINDA Insulin Human Lispro (Insulin Lispro (Admelog) 1 Unit/0.01 Ml Unit) 0 unit SC ACHS [facility]; Protocol Stop: 06/15/25 07:29 Last Admin: 05/18/25 07:47 Dose: 2 unit Documented By: MARCIAL Co-signed By: ofelia Admin: 05/17/25 21:18 Dose: 3 unit Documented By: CTF Co-signed By: NELSON Admin: 05/17/25 17:40 Dose: 2 unit Documented By: LH Co-signed By: JAIME Admin: 05/17/25 11:39 Dose: 2 unit Documented By: PP Co-signed By: CINDA Admin: 05/17/25 07:29 Dose: 2 unit Documented By: PP Co-signed By: CINDA Admin: 05/16/25 23:10 Dose: 2 unit Documented By: CP Co-signed By: RB Admin: 05/16/25 17:09 Dose: 1 unit Documented By: MI Co-signed By: Admin: 05/16/25 11:05 Dose: 2 unit Documented By: MI Co-signed By: CINDA Admin: 05/16/25 07:32 Dose: 2 unit Documented By: MI Co-signed By: CINDA Insulin Human Lispro (Insulin Lispro (Admelog) 1 Unit/0.01 Ml Unit) 2 unit SC TIDWM [facility] Stop: 06/16/25 07:59 Last Admin: 05/18/25 07:48 Dose: 2 unit Documented By: MARCIAL Co-signed By: ofelia Admin: 05/17/25 17:40 Dose: 2 unit Documented By: CINDA Co-signed By: JAIME Admin: 05/17/25 11:39 Dose: 2 unit Documented By: PP Co-signed By: CINDA Admin: 05/17/25 09:24 Dose: 2 unit Documented By: PP Co-signed By: CINDA Metoclopramide HCl (Metoclopramide Inj 5 Mg/Ml Vial 2 Ml) 10 mg IVP TID [facility]; Protocol Stop: 06/15/25 13:59 Last Admin: 05/18/25 07:39 Dose: 10 mg Documented By: Admin: 05/17/25 23:26 Dose: 10 mg Documented By: Admin: 05/17/25 14:44 Dose: 10 mg Documented By: Admin: 05/17/25 05:56 Dose: 10 mg Documented By: Admin: 05/16/25 21:30 Dose: 10 mg Documented By: Admin: 05/16/25 15:22 Dose: 10 mg Documented By: MI Morphine Sulfate (Morphine Sulf Inj 4 Mg/Ml Vial) 2 mg IVP Q4HR PRN PRN Reason: pain 4-6 Stop: 05/21/25 01:06 Last Admin: 05/17/25 19:21 Dose: 2 mg Documented By: Admin: 05/17/25 12:47 Dose: 2 mg Documented By: Admin: 05/16/25 23:27 Dose: 2 mg Documented By: Admin: 05/16/25 15:32 Dose: 2 mg Documented By: Admin: 05/16/25 07:40 Dose: 2 mg Documented By: Admin: 05/16/25 01:55 Dose: 2 mg Documented By: ALFREDO Pantoprazole Sodium (Pantoprazole Inj 40 Mg Vial) 40 mg IVP BID DON Stop: 06/15/25 08:59 Last Admin: 05/17/25 21:07 Dose: 40 mg Documented By: Admin: 05/17/25 09:23 Dose: 40 mg Documented By: Admin: 05/16/25 21:29 Dose: 40 mg Documented By: Admin: 05/16/25 08:25 Dose: 40 mg Documented By: SUYAPA Sennosides (Senna/Docusate Sod 1 Tab Tablet) 1 tab PO QDAY PRN; Protocol PRN Reason: CONSTIPATION Stop: 06/15/25 02:15 Last Admin: 05/16/25 23:30 Dose: 1 tab Documented By: LILIANA Sucralfate (Sucralfate Susp 1 Gm/10 Ml Udc) 1 gm PO ACHS DON Stop: 06/15/25 07:29 Last Admin: 05/18/25 07:47 Dose: 1 gm Documented By: Admin: 05/17/25 21:04 Dose: 1 gm Documented By: Admin: 05/17/25 17:40 Dose: 1 gm Documented By: Admin: 05/17/25 11:40 Dose: 1 gm Documented By: Admin: 05/17/25 07:29 Dose: 1 gm Documented By: Admin: 05/16/25 21:30 Dose: 1 gm Documented By: Admin: 05/16/25 17:09 Dose: 1 gm Documented By: Admin: 05/16/25 11:05 Dose: 1 gm Documented By: Admin: 05/16/25 07:40 Dose: 1 gm Documented By: MI Discontinued Medications Acetaminophen (Acetaminophen 325 Mg Tablet) 650 mg PO Q4HR PRN PRN Reason: Fever >101 and pain 1-3 Stop: 06/15/25 01:03 Aspirin (Aspirin Ec 81 Mg Tabec) 81 mg PO BID DON Stop: 06/15/25 01:14 Heparin Sodium (Porcine) (Heparin Sod Inj 5000 Unit/Ml Vial) 5,000 unit SC BID DON Stop: 05/30/25 01:14 Last Admin: 05/16/25 08:25 Dose: 5,000 unit Documented By: SUYAPA Co-signed By: CINDA Admin: 05/16/25 01:47 Dose: 5,000 unit Documented By: ALFREDO Co-signed By: SHIMA Ceftriaxone Sodium/Dextrose (Rocephin/D5w 1gm Iv Premix) 1 gm in 50 mls @ 100 mls/hr IV X1 ONE Stop: 05/15/25 22:26 Last Infusion: 05/15/25 22:59 Dose: Infused Documented By: Admin: 05/15/25 22:29 Dose: 100 mls/hr Documented By: ALFREDO Potassium Chloride (Kcl Ivpb) 10 meq in 100 mls @ 100 mls/hr IV Q1H DON Stop: 05/16/25 00:36 Last Infusion: 05/16/25 01:59 Dose: Infused Documented By: Admin: 05/15/25 23:55 Dose: 100 mls/hr Documented By: Infusion: 05/15/25 23:53 Dose: Infused Documented By: Admin: 05/15/25 22:47 Dose: 100 mls/hr Documented By: ALFREDO Lactated Ringer's (Lactated Ringers) 1,000 mls @ 999 mls/hr IV .Q1H1M ONE Stop: 05/16/25 02:02 Last Infusion: 05/16/25 02:05 Dose: Infused Documented By: Admin: 05/16/25 01:47 Dose: 999 mls/hr Documented By: ALFREDO Lactated Ringer's (Lactated Ringers) 1,000 mls @ 100 mls/hr IV .Q10H [facility] Stop: 06/15/25 01:14 Last Admin: 05/16/25 06:53 Dose: 100 mls/hr Documented By: MRFracisco Potassium Chloride (Kcl Ivpb) 10 meq in 100 mls @ 100 mls/hr IV Q1H [facility] Stop: 05/16/25 05:19 Magnesium Sulfate (Magnesium Sulfate Ivpb) 4 gm in 50 mls @ 12.5 mls/hr IV X1 ONE Stop: 05/16/25 12:35 Last Admin: 05/16/25 10:07 Dose: 12.5 mls/hr Documented By: MI Lactated Ringer's (Lactated Ringers) 1,000 mls @ 999 mls/hr IV .Q1H1M [facility] Stop: 06/15/25 10:49 Last Admin: 05/16/25 11:58 Dose: 999 mls/hr Documented By: MI Lactated Ringer's (Lactated Ringers) 1,000 mls @ 125 mls/hr IV .Q8H ONE Stop: 05/17/25 00:11 Last Admin: 05/16/25 21:29 Dose: 125 mls/hr Documented By: CP Potassium Phosphate 22.5 mmol/ (Sodium Chloride) 507.5 mls @ 82.778 mls/hr IV X1 ONE Stop: 05/17/25 13:54 Last Admin: 05/17/25 09:58 Dose: 82.778 mls/hr Documented By: PP Magnesium Sulfate (Magnesium Sulfate Ivpb) 2 gm in 50 mls @ 25 mls/hr IV X1 ONE Stop: 05/17/25 09:46 Last Admin: 05/17/25 09:22 Dose: 25 mls/hr Documented By: PP Morphine Sulfate (Morphine Sulf Inj 4 Mg/Ml Vial) 4 mg IM X1 ONE Stop: 05/15/25 21:57 Last Admin: 05/16/25 00:06 Dose: Not Given Documented By: ALFREDO Non-Admin Reason: d/c Morphine Sulfate (Morphine Sulf Inj 4 Mg/Ml Vial) 4 mg IVP X1 ONE Stop: 05/15/25 22:00 Last Admin: 05/15/25 22:28 Dose: 4 mg Documented By: ALFREDO Ondansetron HCl (Ondansetron Inj 2 Mg/Ml Inj 2 Ml) 4 mg IVP Q6H PRN; Protocol PRN Reason: NAUSEA OR VOMITING Stop: 06/15/25 00:58 Last Admin: 05/16/25 07:40 Dose: 4 mg Documented By: MI Pantoprazole Sodium (Pantoprazole Inj 40 Mg Vial) 40 mg IVP BID [facility] Stop: 06/15/25 00:59 Pantoprazole Sodium (Pantoprazole 40 Mg Tablet) 40 mg PO QAM DON Stop: 06/15/25 13:59 Potassium Chloride (Potassium Chloride 10% 20 Meq/15 Ml Udc) 40 meq PO X1 ONE Stop: 05/16/25 01:36 Last Admin: 05/16/25 01:53 Dose: 40 meq Documented By: ALFREDO Potassium Chloride (Potassium Chloride 20 Meq Tabcr) 40 meq PO X1 ONE Stop: 05/16/25 08:36 Last Admin: 05/16/25 10:06 Dose: 40 meq Documented By: MI Potassium Chloride (Potassium Chloride 20 Meq Tabcr) 20 meq PO X1 ONE Stop: 05/17/25 09:53 Last Admin: 05/17/25 11:40 Dose: 20 meq Documented By: PP Potassium Chloride (Potassium Chloride 10% 20 Meq/15 Ml Udc) 40 meq PO X1 ONE Stop: 05/18/25 08:37 Potassium Chloride (Potassium Chloride 10% 20 Meq/15 Ml Udc) 20 meq PO X1 ONE Stop: 05/18/25 08:37 Prochlorperazine Edisylate (Prochlorperazine Inj 5 Mg/Ml Vial 2 Ml) 2.5 mg IM X1 ONE; Protocol Stop: 05/15/25 21:57 Last Admin: 05/16/25 00:06 Dose: Not Given Documented By: [email or web address] Non-Admin Reason: Discontinued Prochlorperazine Edisylate (Prochlorperazine Inj 5 Mg/Ml Vial 2 Ml) 2.5 mg IV X1 ONE; Protocol Stop: 05/15/25 22:00 Last Admin: 05/15/25 22:28 Dose: 2.5 mg Documented By: [email or web address] Sucralfate (Sucralfate Susp 1 Gm/10 Ml Udc) 1 gm PO X1 ONE Stop: 05/16/25 01:25 Last Admin: 05/16/25 03:18 Dose: 1 gm Documented By: MRG See above if any Consultations Consultation(s) initiated? (list below): Yes Consultation #1 (Physician, Specialty, Details): Discussed with Dr. Hernandez for admission. Reviewed the patient?s HPI, PMHx, lab and/or radiology results. Discussed treatment plan. Will consult an admission to the hospitalist. Time: 23:45 Diagnosis Differential diagnosis abdominal pain: abdominal pain, calculus of kidney, constipation, diverticulitis, gastroenteritis, small bowel obstruction and other (Cystitis, Pyelonephritis) Most likely diagnosis given after review of the tests above:: Hypokalemia, Gastritis, and Ascending UTI. Admission Indicated Admission indicated?: indicated Explain why admission is indicated or not indicated:: Hypokalemia, Gastritis, and Ascending UTI. Admission Request Was there a request for admission?: Yes Admission Attestation Admission request attestation: Discussed case with [] from Hospitalist service regarding admission. Discussed patients ED course, exam findings, labs, and radiology results. The Hospitalist [agrees,declines] to accept the patient for admission. Disposition Plan Disposition Plan: Admit Discharge Plan Plan Patient Disposition: Admit Acute Care w/in Hospital Patient condition on transfer: Stable Problem List Clinical Impression: Hypokalemia, UTI (urinary tract infection), Gastritis
[2025-05-15 21:48] LABS: Bacteria,Urine 1+; Bilirubin,Urine Negative (Negative); Blood,Urine Negative (Negative); Clarity,Urine Clear (Clear/Hazy); Color,Urine Colorless (Lt Yel-Yel); Glucose, Urine Negative (Negative); Ketones,Urine 1+ (Negative); Leukocyte Esterase,Urine Negative (Negative); Nitrite,Urine Negative (Negative); PH,Urine 7.5 (5.0-7.0); Protein,Urine Negative (Neg - Trace); RBC,Urine 1 /hpf (0-3); Specific Gravity,Urine 1.003 (1.001-1.035); Squamous Epithelial Cell,Urine < 1 /hpf (0-5); Urobilinogen,Urine Negative mg/dL (0.0-1.0); WBC,Urine 1 /hpf (0-5)
[2025-05-15] MEDS: MORPHINE SULF INJ 4 MG/ML VIAL IVP (22:28)
[2025-05-15] MEDS: PROCHLORPERAZINE INJ 5 MG/ML VIAL 2 ML 2.5 MG IV (22:28)
[2025-05-15] MEDS: cefTRIAXone/D5w 1gm IV premix 1 GM/50 ML BAG IV (22:29)
[2025-05-15 22:34] VITALS: BMI 42.2
[2025-05-15] MEDS: POTASSIUM CHL 10 mEq IVPB 10 MEQ/100 ML BAG 100 MEQ IV ×2 (22:47→23:55)
[2025-05-15 23:16] VITALS: BP 129/71; PULSE 112; RESP 20; TEMP 37.4; O2SAT 95
--- NOTE | 2025-05-16 01:03 | XR_ITS ---
Examination: Venous duplex lower extremity sonogram, bilateral. Date and time of exam: May 16, 2025, 0252 hrs. Indications: Bilateral leg pain post knee surgery May 08, 2025 Technique: Multiple sonographic images of the deep venous system have been obtained. B-mode/2-D grayscale imaging of vascular structures and Doppler spectral analysis (waveforms) and color performed Both legs are examined. Findings: Deep venous systems do not demonstrate abnormal echogenicity. All visualized deep veins exhibit compressibility. All visualized deep veins exhibit augmentation. Impression: Negative for deep vein thrombosis
--- NOTE | 2025-05-16 01:13 | PD.RESHP ---
Documentation for date of: 05/16/25 [facility] History of Present Illness History of present illness: Patient is a 55-year-old female past medical significant for gastritis, osteoarthritis, diabetes mellitus, hypercholesterolemia, hypothyroidism presented to the ED on 05/15/2025 with chief complaint of intractable abdominal pain and nausea. Patient reports a 4-day history of nausea, vomiting and epigastric pain. The most recent episode vomiting occurred yesterday, but today she has had a sensation of needing to vomit, though is not happening due to lack of eating. She described epigastric pain as constant and sharp, with no radiation to the back. The pain intensifies immediately after meals. Also reported 1 bowel movement this morning. Patient also reports having undergone a right knee replacement on 05/08 and was prescribed aspirin, Tylenol and oxycodone for pain management. She notes that the epigastric pain seems to worsen after initiating this pain regimen. Additionally she endorses intermittent right knee pain that worsens with ambulation. The patient denies experiencing chest pain, palpitation, shortness of breath, back pain, fever, chills or urinary symptoms. ED Course: -Initial vitals were within normal limits. -Labs significant for potassium 3, chloride 97, glucose, glucose 179 - UA was negative for UTI - Imaging included abdominal/pelvis CT showed advanced degenerative disc disease L4-L5, no bowel obstruction or diverticulitis, perinephric stranding. -In the ED, patient was given morphine, prochlorperazine 2.5 mg, ceftriaxone, Kcl 20 mEq. -Patient was admitted for intractable abdominal pain evaluation and management Review of Systems Review of systems otherwise negative except what is mentioned above. Past Medical History: Mentioned above Family History: Noncontributory Surgical History: Right total knee replacement on 05/08/2025, cholecystectomy, C-sections Social History: Denies history of smoking, denies current alcohol use, denies recreational drug use Current Medications: Reviewed 100 mg, pantoprazole 40 mg, atorvastatin 20 mg, glipizide 5 mg, levothyroxine 25 mg, Ozempic Allergies: No known drug allergies Exam Vital Signs Temp Pulse Resp BP Pulse Ox O2 Del Method 99.4 F 112 H 20 129/71 95 Room Air 05/15/25 23:16 05/15/25 23:16 05/15/25 23:16 05/15/25 23:16 05/15/25 23:16 05/15/25 23:16 Narrative Exam General: Alert, no acute distress. Poor hearing Skin: Warm, dry, intact. No rash or ecchymoses. Head: Normocephalic, atraumatic. Eye: Normal conjunctiva, PERRL. Throat: Oral mucosa moist. No obvious lesions in oropharynx. Cardiovascular: Regular rate and rhythm, no murmur, +S1/S2. Respiratory: Lungs are clear to auscultation, respirations unlabored, no crackles, no wheezing. Gastrointestinal: Soft, distended significant tender epigastric area. No guarding or rebound tenderness. Extremities: Right knee edema, erythematous and painful to palpation Neuro: Alert and oriented x3.No focal deficits observed. Conversant, moving all extremities. No overt cerebellar signs/incoordination. Psychiatric: Cooperative, appropriate affect Results: Labs 05/16/25 05:11 05/16/25 05:11 Labs: Short CBC 05/15/25 Range/Units 20:10 WBC 6.8 (3.6-11.0) Thou/mm3 Hgb 12.4 (12.0-16.0) g/dL Hct 35.4 L (36.0-46.0) % Plt Count 310 D (140-440) Thou/mm3 BMP 05/15/25 20:10 Sodium 133 L Potassium 3.0 L Chloride 97 L Carbon Dioxide 24.9 BUN < 5 L Creatinine 0.6 Glucose 179 H Calcium 9.6 Liver Function 05/15/25 Range/Units 20:10 Total Bilirubin 0.9 (0.3-1.2) mg/dL AST 30 (0-34) U/L ALT 39 (10-49) U/L Alkaline Phosphatase 87 (46-116) U/L Albumin 3.9 (3.5-5.0) gm/dL Urine 05/15/25 Range/Units 21:25 Urine Color Colorless A (Lt Yel-Yel) Urine Clarity Clear (Clear/Hazy) Urine pH 7.5 H (5.0-7.0) Ur Specific [place] 1.003 (1.001-1.035) Urine Protein Negative (Neg - Trace) Urine Glucose (UA) Negative (Negative) Quality Measures Quality Measures none Medications Home Medications and Allergies Home Medications ?Medication ?Instructions ?Recorded ?Confirmed ?Type atorvastatin 20 mg tablet 20 mg PO QDAY 05/04/25 05/16/25 History glipizide 5 mg tablet 5 mg PO QDAY 05/04/25 05/16/25 History pantoprazole 40 mg tablet,delayed 40 mg PO QAM 05/04/25 05/16/25 History release (Protonix) semaglutide 2 mg/dose (8 mg/3 mL) 2 mg subcut QWEEK 05/04/25 05/16/25 History subcutaneous pen injector (Ozempic) sitagliptin phosphate 100 mg 100 mg PO QDAY 05/04/25 05/16/25 History tablet (Januvia) Allergies Allergy/AdvReac Type Severity Reaction Status Date / Time diclofenac Allergy Severe Hives Verified 05/15/25 18:41 Visit Medications Acetaminophen (Acetaminophen 325 Mg Tablet) 650 mg PO Q4HR PRN PRN Reason: Fever >101 and pain 1-3 Stop: 06/15/25 01:03 Aspirin (Aspirin Ec 81 Mg Tabec) 81 mg PO BID DON Stop: 06/15/25 01:14 Dextrose (Dextrose 50%-Water Inj 50 Ml Syringe) 25 ml IV Q15MIN PRN PRN Reason: BG 50-70 responsive npo pt Stop: 06/15/25 01:07 Dextrose (Dextrose 50%-Water Inj 50 Ml Syringe) 50 ml IV Q15MIN PRN PRN Reason: BG <50 OR BG <70 & pt unresponsive Stop: 06/15/25 01:07 Glucagon (Glucagon Inj 1 Mg Vial) 1 mg IM Q15MIN PRN PRN Reason: BG <70, and no IV access Heparin Sodium (Porcine) (Heparin Sod Inj 5000 Unit/Ml Vial) 5,000 unit SC BID DON Stop: 05/30/25 01:14 Lactated Ringer's (Lactated Ringers) 1,000 mls @ 999 mls/hr IV .Q1H1M ONE Stop: 05/16/25 02:02 Lactated Ringer's (Lactated Ringers) 1,000 mls @ 100 mls/hr IV .Q10H DON Stop: 06/15/25 01:14 Insulin Human Lispro (Insulin Lispro (Admelog) 1 Unit/0.01 Ml Unit) 0 unit SC ACHS [facility]; Protocol Stop: 06/15/25 07:29 Morphine Sulfate (Morphine Sulf Inj 4 Mg/Ml Vial) 2 mg IVP Q4HR PRN PRN Reason: pain 4-6 Stop: 05/21/25 01:06 Ondansetron HCl (Ondansetron Inj 2 Mg/Ml Inj 2 Ml) 4 mg IVP Q6H PRN; Protocol PRN Reason: NAUSEA OR VOMITING Stop: 06/15/25 00:58 Pantoprazole Sodium (Pantoprazole Inj 40 Mg Vial) 40 mg IVP BID DON Stop: 06/15/25 00:59 Discontinued Medications Ceftriaxone Sodium/Dextrose (Rocephin/D5w 1gm Iv Premix) 1 gm in 50 mls @ 100 mls/hr IV X1 ONE Stop: 05/15/25 22:26 Last Infusion: 05/15/25 22:59 Dose: Infused Potassium Chloride (Kcl Ivpb) 10 meq in 100 mls @ 100 mls/hr IV Q1H DON Stop: 05/16/25 00:36 Last Admin: 05/15/25 23:55 Dose: 100 mls/hr Morphine Sulfate (Morphine Sulf Inj 4 Mg/Ml Vial) 4 mg IM X1 ONE Stop: 05/15/25 21:57 Last Admin: 05/16/25 00:06 Dose: Not Given Morphine Sulfate (Morphine Sulf Inj 4 Mg/Ml Vial) 4 mg IVP X1 ONE Stop: 05/15/25 22:00 Last Admin: 05/15/25 22:28 Dose: 4 mg Prochlorperazine Edisylate (Prochlorperazine Inj 5 Mg/Ml Vial 2 Ml) 2.5 mg IM X1 ONE; Protocol Stop: 05/15/25 21:57 Last Admin: 05/16/25 00:06 Dose: Not Given Prochlorperazine Edisylate (Prochlorperazine Inj 5 Mg/Ml Vial 2 Ml) 2.5 mg IV X1 ONE; Protocol Stop: 05/15/25 22:00 Last Admin: 05/15/25 22:28 Dose: 2.5 mg Assessment & Plan Plan Patient is a 59-year-old female past medical significant for gastritis, osteoarthritis s/p TKA 8 days ago at [facility], diabetes mellitus, hypercholesterolemia, hypothyroidism presented to the ED on 05/15/2025 with chief complaint of intractable abdominal pain and nausea. Admitted for evaluation of intractable N/V and abdominal pain. #Acute cellulitis #Right knee pain #S/p right total knee replacement #Osteoarthritis #Rule out DVT DDx: DVT vs postsurgical wound infection vs prosthetic related acute inflammatory reaction S/P R TKR 05/08/2025. R/Knee erthyma, warmth and tenderness noted on exam Patient reports taking prescribed aspirin once daily instead of twice and not consistent. F/U for changes in pain. -Blood culture ordered, pending -Doppler ultrasound lower extremity bilateral ordered, pending -Started ceftriaxone 1gm - Orthopedic consulted, recommendation appreciated - Consider further imaging as warranted. #Intractable Nausea and vomiting #Abdominal pain #Peptic Ulcer disease DDx: Gastric ulcer vs duodenal ulcer vs Arleen-Lazo Syndrome(ZES) Given patient presentation epigastric pain, nausea, vomiting that is worsening with food intake, she has gastric ulcer. That worsened s/p right knee replaced due to aspirin and oxycodone use. Less likely duodenal ulcer as patient pain does not require few hours after eating. Not ZES as patient presentation is significant and recurrent ulcers with diarrhea. Low potassium of 3 and chloride 97 indicating GI losses. In the ED patient received 40 mEq of potassium. - Started Carafate 1 mg TID - Started Protonix 40 mg twice daily - Zofran 4 mg for nausea/vomiting - Continue with IV hydration with lactated ringer - Pain control morphine and Tylenol #Hypokalemia Low potassium of 3 and chloride 97 indicating GI losses. - F/U and replete potassium as needed #Sinus Tachycardia Likely in setting of dehydration and pain. HR 130s, appears sinus on telemetry. ? Anticipate improvement with fluids and pain control #Perinephric stranding on CT Patient denies any symptoms of #Hux-Kepixjp-yqnpwmqbx type 2 diabetes On admission glucose 179 and last A1c was 9.2. Patient on medication is to glipizide, Januvia, Ozempic -ISS -Glucose check ACHS #Hypercholesterolemia - Resume home atorvastatin 20 mg #Hypothyroidism - home medication levothyroxine 25mg Hospital management: Lines: peripheral IV Diet: Peptic ulcer Bowel: senna docusate GI prophylaxis: pantoprazole/ Sucralfate DVT prophylaxis: Heparin SC Disposition: [facility] for intractable abdominal pain, tachycardia and right knee pain the evaluation and management CODE STATUS: Full code Patient seen and assessed under supervision of attending physician Dr.Alhalaibeh Keyana Easton MD PGY-1, Internal Medicine Please note: this document was transcribed using voice recognition technology; minor inaccuracies may be present. Attending Provider Attestation/Addendum After examination of the patient and review of the clinical data I feel that this patient needs admission to the hospital for further treatment/evaluation. Plan of care discussed with patient and is in agreement. I Primo Elizondo MD, attest that I was physically present for moyer portions of evaluation, and examined patient, labs and imagings and plan of care were discussed with IM residents team, and I agree with the findings and plans documented above.
[2025-05-16 01:28] VITALS: BP 100/71; PULSE 129; RESP 19; TEMP 37.5; O2SAT 97
[2025-05-16] MEDS: RINGERS LACTATED 1000 ML 1,000 ML 999 ML IV ×2 (01:47→11:58)
[2025-05-16] MEDS: HEPARIN SOD INJ 5000 UNIT/ML VIAL SC ×2 (01:47→08:25)
[2025-05-16] MEDS: POTASSIUM CHLORIDE 10% 20 MEQ/15 ML UDC 40 MEQ PO (01:53)
[2025-05-16] MEDS: MORPHINE SULF INJ 4 MG/ML VIAL 2 MG IVP ×4 (01:55→23:27)
[2025-05-16] MEDS: SUCRALFATE SUSP 1 GM/10 ML UDC PO ×5 (03:18→21:30)
--- NOTE | 2025-05-16 03:42 | PRELIM_ITS ---
Bilateral lower extremity venous Doppler ultrasound with wave Doppler spectral analysis. May 16, 2025 0252 hours Clinical history: DVT r/o Technique: Duplex scan of the bilateral lower extremity deep venous systems was performed utilizing 2D grayscale imaging, Doppler spectral analysis and color flow Doppler and with compression. Comparison: None available at the time of this report. Findings: Underwood scale, color flow and spectral Doppler evaluation of the lower extremity deep veins was performed. Right: The common femoral, superficial femoral and popliteal veins are patent and compressible. Normal respiratory variation is noted. There is no evidence of occlusive or nonocclusive thrombus. The great saphenous vein is patent at the level of the saphenofemoral junction. Left: The common femoral, superficial femoral and popliteal veins are patent and compressible. Normal respiratory variation is noted. There is no evidence of occlusive or nonocclusive thrombus. The great saphenous vein is patent at the level of the saphenofemoral junction. Impression: No sonographic evidence of deep venous thrombosis in both lower extremities. Report Electronically Signed By: Kaveh Hendricks 05/16/2025 3:41:46 AM [EST]
[2025-05-16 04:00] VITALS: BP 103/58; PULSE 126; RESP 19; TEMP 36.7; O2SAT 93
[2025-05-16 05:32] LABS: Basophils # (Auto) 0.0 Thou/mm3 (0.0-0.2); Basophils % (Auto) 0 % (0-2.5); Eosinophils # (Auto) 0.1 Thou/mm3 (0.0-0.5); Eosinophils % (Auto) 1 % (0-10); Hematocrit 34.1 % (36.0-46.0); Hemoglobin 11.8 g/dL (12.0-16.0); Immature Granulocytes Auto 0.12 Thou/mm3 (0.00-0.00); Lymphocytes # (Auto) 1.4 Thou/mm3 (1.0-4.8); Lymphocytes % (Auto) 18 % (10-50); Mean Corpuscular HGB Conc 34.6 g/dl (31.0-37.0); Mean Corpuscular Hemoglobin 32.1 pg (25.0-35.0); Mean Corpuscular Volume 93 fL (80-100); Monocytes # (Auto) 0.7 Thou/mm3 (0.0-0.8); Monocytes % (Auto) 9 % (0-12); Neutrophils # (Auto) 5.3 Thou/mm3 (1.8-7.7); Neutrophils % (Auto) 69 % (37-80); Nucleated Red Blood Cell # 0.00 Thou/mm3 (0.00-0.00); Nucleated Red Blood Cell % 0 /100 WBC (0); Platelet Count 232 Thou/mm3 (140-440); RDW Standard Deviation 43.6 fL (36.4-46.3); Red Blood Count 3.68 Miln/mm3 (4.00-5.20); White Blood Count 7.6 Thou/mm3 (3.6-11.0)
[2025-05-16 06:13] LABS: Anion Gap 15 (7-16); BUN/Creatinine Ratio 10 Ratio (12-20); Blood Urea Nitrogen < 5 mg/dL (9-23); Calcium 9.1 mg/dL (8.3-10.6); Carbon Dioxide 21.3 mMol/L (20.0-31.0); Chloride 104 mMol/L (98-107); Creatinine (Component) 0.5 mg/dL (0.6-1.3); Estimated Creatinine Clearance 122.1 mL/min (>60); Glucose 210 mg/dL (74-106); Magnesium 1.6 mg/dL (1.6-2.6); Osmolality,Calculated 282 (275-295); Phosphorous 3.2 mg/dL (2.4-5.1); Potassium 3.4 mMol/L (3.4-5.1); Sodium 140 mMol/L (136-145); eGFR > 60 See Note
[2025-05-16] MEDS: RINGERS LACTATED 1000 ML 1,000 ML 100 ML IV (06:53)
[2025-05-16] MEDS: INSULIN LISPRO (AdmeLOG) 1 UNIT/0.01 ML UNIT SC ×4 (07:32→23:10)
[2025-05-16] MEDS: ONDANSETRON INJ 2 MG/ML INJ 2 ML 4 MG IVP (07:40)
[2025-05-16 07:42] VITALS: BP 108/61; PULSE 119; RESP 19; TEMP 36.6; O2SAT 98
[2025-05-16] MEDS: cefTRIAXone/D5w 1gm IV premix 1 GM/50 ML BAG IV (08:25)
[2025-05-16] MEDS: ATORVASTATIN CALCIUM 20 MG TABLET PO (08:25)
--- NOTE | 2025-05-16 09:11 | PC.SS ---
Patient Aparna Richey is a 59 Year old Female admitted for Intractable Emesis. SS met with patient, patient reports she lives at home with family. Patient's , Kalin Rogel is surrogate decision maker, [phone]. Patient is able to complete all ADL's independently. Choice of pharmacy is [facility] Patient does not utilize any source of DME. PCP is Zora Schneider. At time of discharge patient will return back home. Discharge plan: Home next of kin: , Kalin Rogel PCP: Zora Schneider
[2025-05-16] MEDS: ACETAMINOPHEN 325 MG TABLET 650 MG PO (10:06)
[2025-05-16] MEDS: Magnesium Sulfate 4 GM Ivpb 4 GM/50 ML BAG IV (10:07)
[2025-05-16 11:27] LABS: Sed Rate (ESR) 39 mm/hr (0-30)
[2025-05-16 11:32] LABS: C-Reactive Protein 4.0 mg/dL (0.0-0.9)
[2025-05-16 11:38] LABS: Lactate (Lactic Acid) 1.4 mMol/L (0.4-2.0)
[2025-05-16 12:00] VITALS: BP 102/64; PULSE 99; RESP 17; TEMP 36.6; O2SAT 95
--- NOTE | 2025-05-16 12:37 | PD.RESPRO ---
Documentation for date of: 05/16/25 Subjective Subjective Interval history: Patient examined at bedside. She is complaining of abdominal pain and nausea. Patient denies any vomiting episodes this morning. BP soft 100/64, tachycardic around 110. Patient just had right knee replacement done on 05/08. It appears to be healing well with no pain, bleeding, or significant erythema. Incision is clean but noticeable bruising in left calf area. Patient is able to slightly bend the knee. States she has been working with PT at home, uses a walker to assist with mobility. Low concern for cellulitis or spetic joint. Likley these syptoms are due to gastroparesis. Start scheduled Reglan, continue fluids, advance diet as tolerated. Continue pantoprazole and sucralfate. Exam Vital Signs Temp Pulse Resp BP Pulse Ox O2 Del Method 98 F 99 17 102/64 95 Room Air 05/16/25 12:00 05/16/25 12:00 05/16/25 12:00 05/16/25 12:00 05/16/25 12:05/16/25 12:00 Narrative Exam General:Obese female, No acute distress, cooperative HEENT: NCAT, No JVD noted. Mucosa dry. Pupils are equal and reactive to light bilaterally Cardiovascular: Normal S1 and S2. Regular rate and rhythm. Respiratory: Lungs are clear to auscultation bilaterally. No wheezing or crackles heard. Abdomen: Soft, mild epigastric tenderness, not distended, normal bowel sounds. Skin: Warm to touch, dry, no rashes noted Musculoskeletal: No gross injuries. Able to move all 4 extremities but limited in right knee. Knee has stitches, no erythema, some swelling. No pain to touch. No pitting edema Neuro: Alert and oriented x3. No focal neuro deficits. Psych: Normal affect and mood Objective Labs 05/17/25 05:01 05/17/25 05:01 Labs: Laboratory Results - last 24 hr 05/15/25 05/15/25 05/16/25 20:10 21:25 05:11 WBC 6.8 7.6 RBC 3.87 L 3.68 L Hgb 12.4 11.8 L Hct 35.4 L 34.1 L MCV 92 93 MCH 32.0 32.1 MCHC 35.0 34.6 RDW Std Deviation 42.3 43.6 Plt Count 310 D 232 D Neut % (Auto) 69 69 Lymph % (Auto) 19 18 Isabella % (Auto) 9 9 Eos % (Auto) 2 1 Baso % (Auto) 0 0 Neut # (Auto) 4.7 5.3 Lymph # (Auto) 1.3 1.4 Isabella # (Auto) 0.6 0.7 Eos # (Auto) 0.1 0.1 Baso # (Auto) 0.0 0.0 Immature Gran # (Auto) 0.10 H 0.12 H Absolute Nucleated RBC 0.00 0.00 Immature Gran % 2 H 2 H Nucleated RBC % 0 0 ESR 39 H Sodium 133 L 140 Potassium 3.0 L 3.4 Chloride 97 L 104 Carbon Dioxide 24.9 21.3 Anion Gap 11 15 BUN < 5 L < 5 L Creatinine 0.6 0.5 L Estim Creat Clear Calc Not Performed. 122.1 eGFR > 60 > 60 BUN/Creatinine Ratio 8 L 10 L Glucose 179 H 210 H Calculated Osmolality 267 L 282 Lactic Acid Calcium 9.6 9.1 Corrected Calcium 9.7 Phosphorus 3.2 Magnesium 1.6 Total Bilirubin 0.9 AST 30 ALT 39 Alkaline Phosphatase 87 C-Reactive Prot, Quant 4.0 H Total Protein 6.3 Albumin 3.9 Globulin 2.4 Albumin/Globulin Ratio 1.6 Lipase 30 Ur Collection Type Clean Catch Urine Color Colorless A Urine Clarity Clear Urine pH 7.5 H Ur Specific [place] 1.003 Urine Protein Negative Urine Glucose (UA) Negative Urine Ketones 1+ A Urine Blood Negative Urine Nitrite Negative Urine Bilirubin Negative Urine Urobilinogen (Auto) Negative Ur Leukocyte Esterase Negative Urine RBC 1 Urine WBC 1 Ur Squamous Epith Cells < 1 Urine Bacteria 1+ A 05/16/25 11:20 WBC RBC Hgb Hct MCV MCH MCHC RDW Std Deviation Plt Count Neut % (Auto) Lymph % (Auto) Isabella % (Auto) Eos % (Auto) Baso % (Auto) Neut # (Auto) Lymph # (Auto) Isabella # (Auto) Eos # (Auto) Baso # (Auto) Immature Gran # (Auto) Absolute Nucleated RBC Immature Gran % Nucleated RBC % ESR Sodium Potassium Chloride Carbon Dioxide Anion Gap BUN Creatinine Estim Creat Clear Calc eGFR BUN/Creatinine Ratio Glucose Calculated Osmolality Lactic Acid 1.4 Calcium Corrected Calcium Phosphorus Magnesium Total Bilirubin AST ALT Alkaline Phosphatase C-Reactive Prot, Quant Total Protein Albumin Globulin Albumin/Globulin Ratio Lipase Ur Collection Type Urine Color Urine Clarity Urine pH Ur Specific [place] Urine Protein Urine Glucose (UA) Urine Ketones Urine Blood Urine Nitrite Urine Bilirubin Urine Urobilinogen (Auto) Ur Leukocyte Esterase Urine RBC Urine WBC Ur Squamous Epith Cells Urine Bacteria Quality Measures Quality Measures none Assessment & Plan Assessment Current Active Medications: Generic Name Dose Route Start Last Admin Trade Name Freq PRN Reason Stop Dose Admin Acetaminophen 650 mg 05/16/25 01:19 05/16/25 10:06 Acetaminophen 325 Mg Tablet PO 06/15/25 01:03 650 mg Q4HR PRN Administration Fever >100.4 and pain 1-3 Atorvastatin Calcium 20 mg 05/16/25 09:00 05/16/25 08:25 Atorvastatin Calcium 20 Mg Tablet PO 06/15/25 08:59 20 mg QDAY DON Administration Dextrose 25 ml 05/16/25 01:08 Dextrose 50%-Water Inj 50 Ml Syringe IV 06/15/25 01:07 Q15MIN PRN BG 50-70 responsive npo pt Dextrose 50 ml 05/16/25 01:08 Dextrose 50%-Water Inj 50 Ml Syringe IV 06/15/25 01:07 Q15MIN PRN BG <50 OR BG <70 & pt unresponsive Glucagon 1 mg 05/16/25 01:08 Glucagon Inj 1 Mg Vial IM Q15MIN PRN BG <70, and no IV access Heparin Sodium (Porcine) 5,000 unit 05/16/25 01:15 05/16/25 08:25 Heparin Sod Inj 5000 Unit/Ml Vial SC 05/30/25 01:14 5,000 unit BID DON Administration Ceftriaxone Sodium/Dextrose 1 gm in 50 mls @ 100 mls/hr 05/16/25 09:00 05/16/25 08:25 Rocephin/D5w 1gm Iv Premix IV 05/23/25 08:59 100 mls/hr QDAY DON Administration Lactated Ringer's 1,000 mls @ 999 mls/hr 05/16/25 10:50 05/16/25 11:58 Lactated Ringers IV 06/15/25 10:49 999 mls/hr .Q1H1M DON Administration Insulin Human Lispro 0 unit 05/16/25 07:30 05/16/25 11:05 Insulin Lispro (Admelog) 1 Unit/0.01 Ml Unit SC 06/15/25 07:29 2 unit ACHS DON Administration Protocol Morphine Sulfate 2 mg 05/16/25 01:07 05/16/25 07:40 Morphine Sulf Inj 4 Mg/Ml Vial IVP 05/21/25 01:06 2 mg Q4HR PRN Administration pain 4-6 Ondansetron HCl 4 mg 05/16/25 00:59 05/16/25 07:40 Ondansetron Inj 2 Mg/Ml Inj 2 Ml IVP 06/15/25 00:58 4 mg Q6H PRN Administration NAUSEA OR VOMITING Protocol Pantoprazole Sodium 40 mg 05/16/25 09:00 05/16/25 08:25 Pantoprazole Inj 40 Mg Vial IVP 06/15/25 08:59 40 mg BID DON Administration Sennosides 1 tab 05/16/25 02:16 Senna/Docusate Sod 1 Tab Tablet PO 06/15/25 02:15 QDAY PRN CONSTIPATION Protocol Sucralfate 1 gm 05/16/25 07:30 05/16/25 11:05 Sucralfate Susp 1 Gm/10 Ml Udc PO 06/15/25 07:29 1 gm ACHS DON Administration Plan Patient is a 59-year-old female past medical significant for gastritis, osteoarthritis s/p TKA 8 days ago at [facility], diabetes mellitus, hypercholesterolemia presented to the ED on 05/15/2025 with chief complaint of intractable abdominal pain and nausea. Admitted for evaluation of intractable N/V and abdominal pain. #Intractable Nausea and vomiting #Abdominal pain #Peptic Ulcer disease DDx: Gastric ulcer, gastroparesis due to diabetes, Ozempic SE delayed emptying Given patient presentation epigastric pain, nausea, vomiting that is worsening with food intake, she has gastric ulcer. That worsened s/p right knee replaced due to aspirin and oxycodone use. Less likely duodenal ulcer as patient pain does not require few hours after eating. Low potassium of 3 and chloride 97 indicating GI losses. - Carafate 1 mg TID - Protonix 40 mg twice daily - Reglan 10mg TID before meals - Continue with IV hydration with lactated ringer - Pain control #Possible UTI UA not indicating infection, denies any symptoms. CT A/P showed perinephric stranding, No renal or ureteral calculi, no hydronephrosis. -urine cultures pending -IV ceftriaxone 2 g daily #S/p right total knee replacement #Osteoarthritis DDx: DVT vs postsurgical wound infection vs prosthetic related acute inflammatory reaction S/P R TKR 05/08/2025. Less concern for septic joint infection. Patient is able to move right knee somewhat. Labs not indicating infection. Suspect that ESR/CRP will be high as she just had surgery. Patient reports taking prescribed aspirin once daily instead of twice and not consistent. DVT ruled out from u/s. -Blood culture pending -Started ceftriaxone 1gm - Orthopedic Dr Miller consulted--no further intervention needed. Patient to follow up outpatient in 4 weeks. -aspirin 81mg BID for DVT prophylaxis #Hypokalemia Low potassium of 3 and chloride 97 indicating GI losses. - F/U and replete potassium as needed #Sinus Tachycardia Likely in setting of dehydration and pain. HR 130s, appears sinus on telemetry. ? Anticipate improvement with fluids and pain control #Hdi-Fmdbaym-tobtjygel type 2 diabetes On admission glucose 179 and last A1c was 9.2. Patient on medication is to glipizide, Januvia, Ozempic -ISS -Glucose check ACHS #Hypercholesterolemia - Resume home atorvastatin 20 mg Health maintenance: Dispo: medsurg, gastroparesis FEN: PUD diet DVT prophylaxis: Aspirin 81mg BID CODE STATUS: Full code The patient's management plan was discussed with my attending physician Dr. Norton. Flori Osborn, PGY-2 Attending Provider Attestation/Addendum Janie Gallegos, DO, attest that I was physically present for the moyer portions of the service and evaluated the patient with the resident and I reviewed and discussed the case with the resident and agree with the resident's findings and plans of care as documented above Patient seen and evaluated this AM. Patient states that she has had difficulty tolerating PO intake for nearly a year since she started ozempic. Patient has been on ozempic for weight loss. However, she states that her stomach as always been weak when taking medications. Patient has been having intractable nausea and vomiting which prompted her to come to the ED. Patient states that she does not want any pain medication for her right knee that was recently repaired. She states that she is able to move her knee with some limitation due to pain. However, patient does not want to take pain medications due to her sensitive stomach. Patient has been ambulating at home with a walker and working with physical therapy. Patient states that her knee is not the issue, she came for her pain in her abdomen and the constant nausea and vomiting. Right knee incision is clean dry and intact. There is some swelling over the right knee, but no erythema or warmth noted. Passive and active range of motion to 30 degrees are limited due to pain, but low suspicion for septic arthritis. Orthopedic surgeon was called as well and evaluated joint, stated site was healing well. Patient has been tachycardic with low?normal systolic blood pressure. Will give IV fluids and give another 1 L bolus of LR. Will slowly advance diet as tolerated. Patient states that she has not taken Ozempic since her elective knee surgery. Suspect that patient may have component of gastroparesis as well. Will start patient on IV Reglan. Advance diet as tolerated.
[2025-05-16] MEDS: METOCLOPRAMIDE INJ 5 MG/ML VIAL 2 ML 10 MG IVP ×2 (15:22→21:30)
[2025-05-16] MEDS: ASPIRIN EC 81 MG TABEC PO ×2 (15:23→21:29)
[2025-05-16 16:00] VITALS: BP 104/70; PULSE 99; RESP 17; TEMP 36.3; O2SAT 98
[2025-05-16 20:00] VITALS: BP 102/75; PULSE 99; RESP 18; TEMP 37.1; O2SAT 94
[2025-05-16] MEDS: RINGERS LACTATED 1000 ML 1,000 ML 125 ML IV (21:29)
[2025-05-16] MEDS: SENNA/DOCUSATE SOD 1 TAB TABLET PO (23:30)
[2025-05-17] VITALS (7 sets, daily range): BP systolic 104–130; BP diastolic 58–74; PULSE 103–112; RESP 16–18; TEMP 36.3–37.3; O2SAT 96–98
--- NOTE | 2025-05-17 03:38 | PC.NURSE ---
Dr. Easton notified regarding blood culture results: no growth in 24 hours.
[2025-05-17] MEDS: ACETAMINOPHEN 325 MG TABLET 650 MG PO ×2 (04:24→17:41)
[2025-05-17 05:09] LABS: Basophils # (Auto) 0.0 Thou/mm3 (0.0-0.2); Basophils % (Auto) 1 % (0-2.5); Eosinophils # (Auto) 0.1 Thou/mm3 (0.0-0.5); Eosinophils % (Auto) 2 % (0-10); Hematocrit 32.6 % (36.0-46.0); Hemoglobin 11.3 g/dL (12.0-16.0); Immature Granulocytes Auto 0.09 Thou/mm3 (0.00-0.00); Lymphocytes # (Auto) 1.4 Thou/mm3 (1.0-4.8); Lymphocytes % (Auto) 23 % (10-50); Mean Corpuscular HGB Conc 34.7 g/dl (31.0-37.0); Mean Corpuscular Hemoglobin 33.1 pg (25.0-35.0); Mean Corpuscular Volume 96 fL (80-100); Monocytes # (Auto) 0.6 Thou/mm3 (0.0-0.8); Monocytes % (Auto) 10 % (0-12); Neutrophils # (Auto) 3.8 Thou/mm3 (1.8-7.7); Neutrophils % (Auto) 63 % (37-80); Nucleated Red Blood Cell # 0.00 Thou/mm3 (0.00-0.00); Nucleated Red Blood Cell % 0 /100 WBC (0); Platelet Count 307 Thou/mm3 (140-440); RDW Standard Deviation 47.1 fL (36.4-46.3); Red Blood Count 3.41 Miln/mm3 (4.00-5.20); White Blood Count 6.0 Thou/mm3 (3.6-11.0)
[2025-05-17] MEDS: METOCLOPRAMIDE INJ 5 MG/ML VIAL 2 ML 10 MG IVP ×3 (05:56→23:26)
[2025-05-17 05:57] LABS: Anion Gap 12 (7-16); BUN/Creatinine Ratio 10 Ratio (12-20); Blood Urea Nitrogen < 5 mg/dL (9-23); Calcium 8.8 mg/dL (8.3-10.6); Carbon Dioxide 25.2 mMol/L (20.0-31.0); Chloride 102 mMol/L (98-107); Creatinine (Component) 0.5 mg/dL (0.6-1.3); Estimated Creatinine Clearance 122.1 mL/min (>60); Glucose 227 mg/dL (74-106); Magnesium 1.8 mg/dL (1.6-2.6); Osmolality,Calculated 281 (275-295); Potassium 3.2 mMol/L (3.4-5.1); Sodium 139 mMol/L (136-145); eGFR > 60 See Note
[2025-05-17] MEDS: SUCRALFATE SUSP 1 GM/10 ML UDC PO ×4 (07:29→21:04)
[2025-05-17] MEDS: INSULIN LISPRO (AdmeLOG) 1 UNIT/0.01 ML UNIT SC ×4 (07:29→21:18)
--- NOTE | 2025-05-17 08:06 | EKG_ITS ---
[facility] Test Date: 2025-05-17 Pat Name: ÁLVARO MURODepartment: Room[facility] Gender: Female [place]: LOULOU : 1965 Requested By: Cayden Bedoya Order Number: [id number] Reading MD: Cayden Bedoya Measurements Intervals [place] Rate: 109 P: 29 WA: 162 QRS: 30 QRSD: 77 T: 30 QT: 355 QTc: 480 Interpretive Statements SINUS TACHYCARDIA ABNORMAL RHYTHM ECG No previous ECG available for comparison /store/S0/[id number]
[2025-05-17] MEDS: Magnesium Sulfate 2 GM Ivpb 2 GM/50 ML BAG IV (09:22)
[2025-05-17] MEDS: ASPIRIN EC 81 MG TABEC PO ×2 (09:23→21:04)
[2025-05-17] MEDS: ATORVASTATIN CALCIUM 20 MG TABLET PO (09:23)
[2025-05-17] MEDS: INSULIN DEGLUDEC 5 UNIT/0.05 ML (PER 5 UNITS) SC (09:24)
[2025-05-17] MEDS: cefTRIAXone/D5w 1gm IV premix 1 GM/50 ML BAG IV (09:24)
[2025-05-17] MEDS: INSULIN LISPRO (AdmeLOG) 1 UNIT/0.01 ML UNIT 2 UNIT SC ×3 (09:24→17:40)
[2025-05-17] MEDS: POTASSIUM PHOS 22.5 MMOL in SODIUM CHLORIDE 0.9% 500 ML 500 ML 82.778 MMOL IV (09:58)
--- NOTE | 2025-05-17 11:19 | ESPR_ITS ---
Documentation for date of: 05/17/25 Patient is a 59-year-old male with a past medical history of diabetes mellitus type 2, hyperlipidemia, history of gastritis with history of ulcer, with recent right total knee replacement by Dr. Miller on 05/08/2025 started on aspirin. Patient presented to the emergency room with a chief complaint of intractable abdominal pain and nausea. Patient examined at bedside with improved nausea and vomiting. Patient is continue to take Protonix, Reglan and Carafate. Advancing diet. Concern for acute cellulitis, right knee, continue IV ceftriaxone started on 05/16/2025 with pending blood cultures, 24 hours. Pending urine culture. Likely D/C within the next 24 hours. Patient ambulates with walker at home, continue home health upon discharge. - The patient's plan was discussed with attending Dr. Errol Sanderson MD PGY2 Internal Medicine Subjective Subjective Interval history: No overnight events. Labs today significant for potassium 3.2 (repleted w/ IV KPhos 22.5 and PO KCl 20) and magnesium 1.8 (repleted with IV mag 2), Patient was examined at bedside; she reports that she feels much better today and is no longer having any nausea, vomiting, or abdominal pain. Patient seems to think that her nausea and vomiting episodes are 2/2 Ozempic and reports that she notices that when she stops taking it that she no longer gets these episodes of N/V. We will stop both patient's Ozempic and Januvia on discharge. On exam, patient still endorses mild epigastric tenderness and the right knee surgical wound appears slightly erythematous and swollen (sutures still in place). Concern for cellulitis or septic joint is low at this time but will keep patient for now until blood cultures show no growth after 48 hours (currently no growth after 24 hours). Exam Vital Signs Temp Pulse Resp BP Pulse Ox O2 Del Method 97.3 F 110 H 18 104/58 L 96 Room Air 05/17/25 08:00 05/17/25 08:00 05/17/25 08:00 05/17/25 08:00 05/17/25 08:00 05/17/25 08:00 Narrative Exam Physical Exam: General: A/O x3, obese female in NAD. Head: Normocephalic, atraumatic. Eyes: EOMI. Anicteric, vision grossly intact. Ears: No ear pain, no ear discharge, Hearing grossly intact. Nose: No nasal discharge. Mouth/Throat: Oral mucosa moist. No obvious lesions in oropharynx. Neck: Neck supple, non-tender, no cervical lymphadenopathy. Cardiovascular: Slightly tachycardic rate and normal rhythm, no murmur, no JVD or carotid bruits. +S1/S2. Respiratory: Bilateral lungs are clear to auscultation, respirations unlabored, no crackles, no wheezing. No accessory muscle use. Gastrointestinal: Soft, mild epigastric tenderness to palpation, non-distended, no palpable masses. No guarding or rebound tenderness. Peristalsis present. Extremities: Vertical surgical wound slightly erythematous, swollen, and warm to touch. No drainage and able to move RLE somewhat. Symmetrical, no significant deformities. No edema, no cyanosis, no clubbing. 2+ radial pulse bilaterally, 2+ posterior tibial pulse bilaterally. Neuro: No focal deficits observed. Conversant, moving all extremities. No overt cerebellar signs/incoordination. Psychiatric: Cooperative, appropriate affect. Objective Labs 05/18/25 04:20 05/18/25 04:20 Labs: Laboratory Results - last 24 hr 05/16/25 05/16/25 05/17/25 05:11 11:20 05:01 WBC 6.0 RBC 3.41 L Hgb 11.3 L Hct 32.6 L MCV 96 MCH 33.1 MCHC 34.7 RDW Std Deviation 47.1 H Plt Count 307 D Neut % (Auto) 63 Lymph % (Auto) 23 [place] % (Auto) 10 Eos % (Auto) 2 Baso % (Auto) 1 Neut # (Auto) 3.8 Lymph # (Auto) 1.4 [place] # (Auto) 0.6 Eos # (Auto) 0.1 Baso # (Auto) 0.0 Immature Gran # (Auto) 0.09 H Absolute Nucleated RBC 0.00 Immature Gran % 2 H Nucleated RBC % 0 ESR 39 H Sodium 139 Potassium 3.2 L Chloride 102 Carbon Dioxide 25.2 Anion Gap 12 BUN < 5 L Creatinine 0.5 L Estim Creat Clear Calc 122.1 eGFR > 60 BUN/Creatinine Ratio 10 L Glucose 227 H Calculated Osmolality 281 Lactic Acid 1.4 Calcium 8.8 Magnesium 1.8 C-Reactive Prot, Quant 4.0 H Quality Measures Quality Measures none Assessment & Plan Assessment Current Active Medications: Generic Name Dose Route Start Last Admin Trade Name Harpreet PRN Reason Stop Dose Admin Acetaminophen 650 mg 05/16/25 01:19 05/17/25 04:24 Acetaminophen 325 Mg Tablet PO 06/15/25 01:03 650 mg Q4HR PRN Administration Fever >100.4 and pain 1-3 Aspirin 81 mg 05/16/25 14:00 05/17/25 09:23 Aspirin Ec 81 Mg Tabec PO 06/15/25 13:59 81 mg BID DON Administration Atorvastatin Calcium 20 mg 05/16/25 09:00 05/17/25 09:23 Atorvastatin Calcium 20 Mg Tablet PO 06/15/25 08:59 20 mg QDAY DON Administration Dextrose 25 ml 05/16/25 01:08 Dextrose 50%-Water Inj 50 Ml Syringe IV 06/15/25 01:07 Q15MIN PRN BG 50-70 responsive npo pt Dextrose 50 ml 05/16/25 01:08 Dextrose 50%-Water Inj 50 Ml Syringe IV 06/15/25 01:07 Q15MIN PRN BG <50 OR BG <70 & pt unresponsive Glucagon 1 mg 05/16/25 01:08 Glucagon Inj 1 Mg Vial IM Q15MIN PRN BG <70, and no IV access Ceftriaxone Sodium/Dextrose 1 gm in 50 mls @ 100 mls/hr 05/16/25 09:00 05/17/25 09:24 Rocephin/D5w 1gm Iv Premix IV 05/23/25 08:59 100 mls/hr QDAY DON Administration Potassium Phosphate 22.5 mmol/ 507.5 mls @ 82.778 mls/hr 05/17/25 07:47 05/17/25 09:58 Sodium Chloride IV 05/17/25 13:54 82.778 mls/hr X1 ONE Administration Insulin Degludec 5 unit 05/17/25 09:00 05/17/25 09:24 Insulin Degludec 5 Unit/0.05 Ml (Per 5 Units) SC 06/16/25 08:59 5 unit QDAY DON Administration Insulin Human Lispro 0 unit 05/16/25 07:30 05/17/25 07:29 Insulin Lispro (Admelog) 1 Unit/0.01 Ml Unit SC 06/15/25 07:29 2 unit ACHS DON Administration Protocol Insulin Human Lispro 2 unit 05/17/25 08:00 05/17/25 09:24 Insulin Lispro (Admelog) 1 Unit/0.01 Ml Unit SC 06/16/25 07:59 2 unit TIDWM DON Administration Metoclopramide HCl 10 mg 05/16/25 14:00 05/17/25 05:56 Metoclopramide Inj 5 Mg/Ml Vial 2 Ml IVP 06/15/25 13:59 10 mg TID DON Administration Protocol Morphine Sulfate 2 mg 05/16/25 01:07 05/16/25 23:27 Morphine Sulf Inj 4 Mg/Ml Vial IVP 05/21/25 01:06 2 mg Q4HR PRN Administration pain 4-6 Pantoprazole Sodium 40 mg 05/16/25 09:00 05/17/25 09:23 Pantoprazole Inj 40 Mg Vial IVP 06/15/25 08:59 40 mg BID DON Administration Sennosides 1 tab 05/16/25 02:16 05/16/25 23:30 Senna/Docusate Sod 1 Tab Tablet PO 06/15/25 02:15 1 tab QDAY PRN Administration CONSTIPATION Protocol Sucralfate 1 gm 05/16/25 07:30 05/17/25 07:29 Sucralfate Susp 1 Gm/10 Ml Udc PO 06/15/25 07:29 1 gm ACHS DON Administration Plan Patient is a 59-year-old female past medical significant for gastritis, osteoarthritis s/p TKA on 05/08 at [facility] [place], diabetes mellitus, hypercholesterolemia presented to the ED on 05/15/2025 with chief complaint of intractable abdominal pain and nausea. Admitted for evaluation of intractable N/V and abdominal pain. #Intractable nausea and vomiting - resolved #Abdominal pain - resolved #Peptic ulcer disease DDx: Ozempic SE delayed emptying, gastroparesis due to diabetes, peptic ulcer disease Patient reports that she has long had PUD without N/V and also notices that her N/V worsen specifically after she injects Ozempic, making Ozempic SE delayed emptying a likely major component of patient's symptoms (possibly with contributions of acute gastritis in the setting of PUD and possible diabetic gastroparesis. That worsened s/p total right knee arthroplasty due to aspirin (in the setting of PUD) and oxycodone use (N/V are common symptoms of oxycodone). Rx: -Carafate 1 mg TID -Protonix 40 mg twice daily -Reglan 10 mg TID before meals -Continue with IV hydration with lactated ringer -Pain control #Asymptomatic UTI UA not indicative of UTI and patient denies any urinary symptoms. CT A/P showed perinephric stranding, but no renal or ureteral calculi and no hydronephrosis. -Urine cultures pending -Continue IV ceftriaxone 1 gm qD [05/16--] #S/p right total knee replacement #Osteoarthritis DDx: DVT vs postsurgical wound infection vs prosthetic related acute inflammatory reaction S/P R TKR 05/08/2025. Less concern for septic joint infection. On exam, knee surgical wound appears slightly erythematous, swollen, and warm to the touch. Patient is able to move right knee somewhat. Labs not indicating infection. DVT ruled out from u/s. -Blood culture pending ([id number], 2/), awaiting growth results after 48 hours before discharging -Continue IV ceftriaxone 1 gm qD [05/16--] -Orthopedic Dr Miller consulted--no further intervention needed. Patient to follow up outpatient in 4 weeks. -Aspirin 81mg BID for DVT prophylaxis #Hypokalemia #Hypomagnesemia Today, K 3.4 -> 3.2, magnesium 1.8 -Gave IV KPhos 22.5 and PO KCl 20 -Gave IV magnesium 2 #Sinus Tachycardia Likely in setting of dehydration and pain, seems improved today -Anticipate improvement with fluids and pain control #Syn-Syvidyt-tvbubcsgg type 2 diabetes On admission glucose 179 and last A1c was 9.2. Patient on medication is to glipizide, Januvia, Ozempic Ozempic seems to be contributing at least in part to patient's episode of NV -ISS -Glucose check ACHS -Discontinue Ozempic and Januvia upon discharge #Hypercholesterolemia -Continue home atorvastatin 10 mg Disposition: Med Surg, awaiting 48 hour blood culture results, can discharge if [id number] FEN: PUD diet DVT prophylaxis: Aspirin 81mg BID CODE STATUS: Full code The patient's management plan was discussed with my attending physician Dr. Norton. Cayden Bedoya, DO Internal Medicine, PGY-1 Attending Provider Attestation/Addendum I, Janie Norton DO, attest that I was physically present for the moyer portions of the service and evaluated the patient with the resident and I reviewed and discussed the case with the resident and agree with the resident's findings and plans of care as documented above Patient seen and eval this a.m. She states that she is feeling better, and denies any further episodes of abdominal pain. Patient was cleared by orthopedic surgeon yesterday and stated that the wound is healing well. Patient has been ambulating to bathroom with assistance without issue. Patient states that she does not want any take any pain medications due to her upset stomach. Tachycardia is most likely secondary to her pain. Discussed with patient that she no longer needs to take any Mounjaro or Ozempic due to delayed gastric emptying. Will continue with Reglan at this time. Patient has been tolerating clear liquid diet. Will advance diet as tolerated. No further episodes of fever otherwise. Pending final culture and sensitivities. So far blood cultures have been negative x 24 hours. Anticipate discharge in the next 24 hours if final cultures are negative. She remains on IV Rocephin at this time.
[2025-05-17] MEDS: MORPHINE SULF INJ 4 MG/ML VIAL 2 MG IVP ×2 (12:47→19:21)
--- NOTE | 2025-05-17 13:12 | ESPR_ITS ---
Subjective Subjective Brief History: Right knee pain Narrative: Patient is a 59-year-old female with right knee pain and is status post right total knee replacement. She was admitted to the hospital due to stomach pains. It was believed To be due to her Ozempic and the Delayed GI motility. The stomach pain is resolved. She is also found to have a UTI. Her right knee looks great and the incision looks great. There is no drainage. Exam Vital Signs Temp Pulse Resp BP Pulse Ox O2 Del Method 98 F 110 H 18 130/65 96 Room Air 05/17/25 12:00 05/17/25 12:00 05/17/25 12:00 05/17/25 12:00 05/17/25 12:00 05/17/25 12:00 Additional findings Additional findings: Patient is in no acute distress and is cooperative with the examination today. Breathing is nonlabored. Patient has a normal mood and affect. Bilateral extremities were evaluated and demonstrates sensation intact to light touch. Palpable pedal pulses are present. No significant edema is present. Bilateral hips were examined. The patient has no pain with log roll of the hips. Internal rotation to 30 degrees and external rotation to 30 degrees is painless. Negative FADIR. Right knee was examined today. The right knee is in neutral alignment. The incision is clean dry and intact. There is no erythema. There is some bruising which is appropriate given that she is 1 week postop Objective - Ortho Labs 05/17/25 05:01 05/17/25 05:01 Labs: Laboratory Results - last 24 hr 05/17/25 05:01 WBC 6.0 RBC 3.41 L Hgb 11.3 L Hct 32.6 L MCV 96 MCH 33.1 MCHC 34.7 RDW Std Deviation 47.1 H Plt Count 307 D Neut % (Auto) 63 Lymph % (Auto) 23 [place] % (Auto) 10 Eos % (Auto) 2 Baso % (Auto) 1 Neut # (Auto) 3.8 Lymph # (Auto) 1.4 [place] # (Auto) 0.6 Eos # (Auto) 0.1 Baso # (Auto) 0.0 Immature Gran # (Auto) 0.09 H Absolute Nucleated RBC 0.00 Immature Gran % 2 H Nucleated RBC % 0 Sodium 139 Potassium 3.2 L Chloride 102 Carbon Dioxide 25.2 Anion Gap 12 BUN < 5 L Creatinine 0.5 L Estim Creat Clear Calc 122.1 eGFR > 60 BUN/Creatinine Ratio 10 L Glucose 227 H Calculated Osmolality 281 Calcium 8.8 Magnesium 1.8 Assessment & Plan Diagnosis (1) History of total right knee replacement: Status: Acute Assessment Additional comments: Patient is a 59-year-old female status post right total knee replacement. Incision looks clean dry and intact. There is no drainage. There is no sign of infection and her epigastric pain is believed to be from the Ozempic which she stopped 1 week before surgery per anesthesia guidelines. The pain has resolved. She can see me back for routine follow-up. Given that the incision looks great we will start with therapy and see her in 3 weeks
--- NOTE | 2025-05-17 15:53 | PC.SS ---
SS follow up note; Patient is pending Blood cultures and on IV ABX. Patient will discharge home when medically cleared.
[2025-05-18] VITALS (7 sets, daily range): BP systolic 108–135; BP diastolic 65–87; PULSE 93–110; RESP 17–26; TEMP 36.1–37.3; O2SAT 94–98
[2025-05-18] MEDS: ACETAMINOPHEN 325 MG TABLET 650 MG PO ×2 (03:29→07:46)
[2025-05-18 05:25] LABS: Basophils # (Auto) 0.0 Thou/mm3 (0.0-0.2); Basophils % (Auto) 1 % (0-2.5); Eosinophils # (Auto) 0.1 Thou/mm3 (0.0-0.5); Eosinophils % (Auto) 3 % (0-10); Hematocrit 31.8 % (36.0-46.0); Hemoglobin 11.0 g/dL (12.0-16.0); Immature Granulocytes Auto 0.07 Thou/mm3 (0.00-0.00); Lymphocytes # (Auto) 1.1 Thou/mm3 (1.0-4.8); Lymphocytes % (Auto) 22 % (10-50); Mean Corpuscular HGB Conc 34.6 g/dl (31.0-37.0); Mean Corpuscular Hemoglobin 32.4 pg (25.0-35.0); Mean Corpuscular Volume 94 fL (80-100); Monocytes # (Auto) 0.6 Thou/mm3 (0.0-0.8); Monocytes % (Auto) 11 % (0-12); Neutrophils # (Auto) 3.1 Thou/mm3 (1.8-7.7); Neutrophils % (Auto) 62 % (37-80); Nucleated Red Blood Cell # 0.00 Thou/mm3 (0.00-0.00); Nucleated Red Blood Cell % 0 /100 WBC (0); Platelet Count 305 Thou/mm3 (140-440); RDW Standard Deviation 45.9 fL (36.4-46.3); Red Blood Count 3.40 Miln/mm3 (4.00-5.20); White Blood Count 5.0 Thou/mm3 (3.6-11.0)
[2025-05-18 05:54] LABS: Anion Gap 11 (7-16); BUN/Creatinine Ratio 13 Ratio (12-20); Blood Urea Nitrogen < 5 mg/dL (9-23); Calcium 8.6 mg/dL (8.3-10.6); Carbon Dioxide 24.8 mMol/L (20.0-31.0); Chloride 101 mMol/L (98-107); Creatinine (Component) 0.4 mg/dL (0.6-1.3); Estimated Creatinine Clearance 152.6 mL/min (>60); Glucose 244 mg/dL (74-106); Magnesium 1.6 mg/dL (1.6-2.6); Osmolality,Calculated 279 (275-295); Potassium 3.2 mMol/L (3.4-5.1); Sodium 137 mMol/L (136-145); eGFR > 60 See Note
[2025-05-18] MEDS: METOCLOPRAMIDE INJ 5 MG/ML VIAL 2 ML 10 MG IVP ×2 (07:39→13:35)
[2025-05-18] MEDS: INSULIN LISPRO (AdmeLOG) 1 UNIT/0.01 ML UNIT SC ×2 (07:47→11:38)
[2025-05-18] MEDS: SUCRALFATE SUSP 1 GM/10 ML UDC PO ×2 (07:47→11:37)
[2025-05-18] MEDS: INSULIN LISPRO (AdmeLOG) 1 UNIT/0.01 ML UNIT 2 UNIT SC ×2 (07:48→11:38)
[2025-05-18] MEDS: ASPIRIN EC 81 MG TABEC PO (09:18)
[2025-05-18] MEDS: ATORVASTATIN CALCIUM 20 MG TABLET PO (09:18)
[2025-05-18] MEDS: cefTRIAXone/D5w 1gm IV premix 1 GM/50 ML BAG IV (09:19)
[2025-05-18] MEDS: POTASSIUM CHLORIDE 10% 20 MEQ/15 ML UDC 40 MEQ PO (09:20)
[2025-05-18] MEDS: INSULIN DEGLUDEC 5 UNIT/0.05 ML (PER 5 UNITS) SC (09:20)
[2025-05-18] MEDS: POTASSIUM CHLORIDE 10% 20 MEQ/15 ML UDC PO (09:20)
--- NOTE | 2025-05-18 09:35 | ESDS_ITS ---
<Statement entered by Janie Norton DO - 05/19/25 07:33> I, Janie Norton DO, attest that I was physically present for the moyer portions of the service and evaluated the patient with the resident and I reviewed and discussed the case with the resident and agree with the resident's findings and plans of care as documented above Planned Discharge Date 05/18/25 DS: Providers Provider Date of admission: 05/16/25 00:59 Primary care physician: Christiano Ortega DC Admitting Provider: Primo Elizondo MD Attending Provider on Admission: Janie Norton DO Consults: 05/16/25 01:17 Consult to Orthopedic Stat Comment: Right knee pain Consulting Provider: Rafiq Miller Attending Provider on DC: Janie Norton DO Discharging Provider: Janie Norton DO Anticipated date of discharge: 05/18/25 DS: Diagnosis Problem List Completed Was Problem List Reviewed/Reconciled?: Yes Hospital Course Hospital Course Hospital course: Patient is a 55-year-old female past medical significant for gastritis, PUD, osteoarthritis s/p TKA on 05/08, diabetes mellitus, hypercholesterolemia, hypothyroidism, presented to the ED on 05/15/2025 with chief complaint of intractable abdominal pain and nausea and subsequently admitted for this reason. It was felt that her symptoms were likely secondary to diabetic gastroparesis, was started on reglan and carafate given history of ulcers. Nausea and vomiting may have been secondary to her ozempic so this was discontinued. Concern for cellulits given history of total right knee replacement, orthopedic surgery was consulted to examine the recently operated knee, deemed no further intervention necessary. She was also found to have a UTI and was started on antibiotics. Urine cx came back with mixed fareed, likely contamination. Denied any symptoms of UTI, NOT discharged on antibiotics as patient is asymptomatic. Over the course of her hospital stay, patient was able to advance her diet, abdominal pain and vomiting had resolved, and she was medically cleared for discharge. Patient was subsequently discharged in stable condition. Stop Ozempic given symptoms of nausea and vomiting. Patient started on Metformin as glipizide was discontinued. Recommendations: -New medication Metformin extended release 500 mg once daily, follow up with primary care provider for diabetes mellitus -STOP Glipizide and Ozempic -Follow up with your primary care physician within 1 week of discharge. If you do not have a primary care physician, please follow up with the [facility] Residents clinic ([phone]) ?If you experience any new, worsening or persistent symptoms either call your primary doctor, or dial 911 or present to the emergency department. Discharge Diagnoses: #Intractable nausea and vomiting, likely 2/2 delayed gastric emptying - resolved #Abdominal pain - resolved #Peptic ulcer disease #Asymptomatic UTI #S/p right total knee replacement #Osteoarthritis #Hypokalemia #Hypomagnesemia #Sinus Tachycardia #Xcw-Xyshzgf-tjpxtdnzg type 2 diabetes #Hypercholesterolemia Patient's plan and care discussed with my attending, Dr. Norton and my senior Dr. Sanderson. Carlos Koroma, PGY-1 ([facility] Resident) Time Spent with Patient Time attestation: Total time spent providing and/or coordinating discharge services: at least 30 minutes of care and coordination Time spent: Greater than 30 minutes Exam Vital Signs Temp Pulse Resp BP Pulse Ox O2 Del Method 97.0 F 108 H 26 H 115/77 96 Room Air 05/18/25 08:00 05/18/25 08:00 05/18/25 08:00 05/18/25 08:00 05/18/25 08:00 05/18/25 08:00 Narrative Exam General: Middle aged patient, no acute distress, laying in bed, conversational. HEENT: Mucosa moist. Pupils are equal Cardiovascular: Regular pulse rate and rhythm, extremities are warm and well perfused. Respiratory: No tachypnea or labored speech, no stridor appreciated Abdomen: Soft, epigastric tenderness to palpation, no abdominal distension. Skin: Dry, no rashes or bruising Musculoskeletal: No gross injuries. Able to move all 4 extremities. The right knee has an overlying dressing which is C/D/I. Some bruising noted along the calf. Patient can move the leg without pain, some tenderness to palpation along the upper calf. Neuro: Alert and oriented x3. No focal neuro deficits. Psych: Normal affect and mood Discharge Plan Plan Patient Disposition: Home w/HOME HEALTH Patient condition on transfer: Stable Care Plan Goals: -New medication Metformin extended release 500 mg once daily, follow up with primary care provider for diabetes mellitus -STOP Glipizide and Ozempic -Follow up with your primary care physician within 1 week of discharge. If you do not have a primary care physician, please follow up with the [facility] Residents clinic ([phone]) ?If you experience any new, worsening or persistent symptoms either call your primary doctor, or dial 911 or present to the emergency department. Prescriptions/Referrals Prescriptions/Med Rec: New metformin [Glucophage XR] 500 mg tablet extended release 24 hr 500 mg PO QDAY 30 Days Qty: 30 0RF ondansetron HCl 4 mg tablet 4 mg PO Q8H PRN (Reason: nausea and vomiting) 7 Days Qty: 21 0RF Continued Januvia 100 mg tablet 100 mg PO QDAY pantoprazole [Protonix] 40 mg tablet,delayed release (DR/EC) 40 mg PO QAM atorvastatin 20 mg tablet 20 mg PO QDAY aspirin 81 mg tablet,delayed release (DR/EC) 81 mg PO BID Qty: 60 0RF acetaminophen [Acetaminophen Extra Strength] 500 mg tablet 1,000 mg PO Q6H MDD 1000mg PRN (Reason: pain) Qty: 90 0RF Discontinued glipizide 5 mg tablet 5 mg PO QDAY Ozempic 2 mg/dose (8 mg/3 mL) pen injector 2 mg subcut QWEEK Referrals: Christiano Ortega DC [Primary Care Provider] Patient/Caregiver Discharge Instructions Education Materials: Diabetes Exercise Get Started Print Language: Macedonian Stand Alone Forms: [facility] Award Info., Patient Portal Info Letter Discharge Order Discharge Orders: Discharge (Routine); Ordered 05/18/25 Ordered By: Arpita Sanderson Quality Discharge Quality Measures VTE prophylaxis
[2025-05-18] MEDS: Magnesium Sulfate 4 GM Ivpb 4 GM/50 ML BAG IV (10:05)
[2025-05-18] MEDS: MORPHINE SULF INJ 4 MG/ML VIAL 2 MG IVP (12:34)
--- NOTE | 2025-05-18 18:03 | PC.CM ---
I did not see a preference noted from customer services manager so I sent to all agencies. [facility] accepted and they will open patient on 05/20.
== END 2025-05-18 15:04 | disposition home health service (06) | DRG 241 ==
LOC: SERX 20:45 → SERHOLD 05-16 01:55 → S3SX 05-16 06:16
PROVIDERS: Nurse Practitioner Family; Admitting Provider Student in an Organized Health Care Education/Training Program; Emergency Provider Emergency Medicine; PCP Chiropractor; Visit Provider Internal Medicine
DX: K29.70 Gastritis, unspecified, without bleeding (principal); E78.00 Pure hypercholesterolemia, unspecified; I10 Essential (primary) hypertension; K31.84 Gastroparesis; E10.43 Type 1 diabetes mellitus with diabetic autonomic (poly)neuropathy; E03.9 Hypothyroidism, unspecified; E87.6 Hypokalemia; N39.0 Urinary tract infection, site not specified; L03.115 Cellulitis of right lower limb; E86.0 Dehydration; M51.369 Other intervertebral disc degeneration, lumbar region without mention of lumbar back pain or lower extremity pain; E83.42 Hypomagnesemia; M17.11 Unilateral primary osteoarthritis, right knee; Z96.651 Presence of right artificial knee joint; Z87.11 Personal history of peptic ulcer disease
CPT/HCPCS: 36415; 74176; 80048; 80053; 81001; 83605; 83690; 83735; 84100; 85025; 85652; 86140; 87040; 87081; 87086; 87400; 87811; 93005; 93225; 93970; 96365; 96366; 96375; 96376; 99284; J0696; J0780; J1644; J1815; J2270; J2405; J2470; J2765; J3475; J3480; J7120; J7999; A9270

== ENCOUNTER 2025-05-25 13:09 | Emergency (ER) | payer MEDICAID, SELFPAY ==
[2025-05-25 13:10] VITALS: BMI 37.3
[2025-05-25 13:31] VITALS: BP 94/67; PULSE 111; RESP 20; TEMP 36.7; O2SAT 97
--- NOTE | 2025-05-25 13:34 | XR_ITS ---
Examination: CT abdomen and pelvis without contrast. Coronal 3-D reconstructions. Sagittal 2-D reconstructions. Date and time of exam: May 25, 2025, 1414 hours, comparison 05/15/2025 INDICATIONS: Onset generalized abdominal pain today CTDI: vol (mGy): 12.3 DLP: (mGycm): 754 Technique: Axial images of the abdomen have been obtained, 3 mm slice thickness Intravenous contrast material has not been administered. Low dose protocols were performed. One or more of the following dose reduction techniques were used; automated exposure control, adjustment of the mA and/or KV according to patient size, use of iterative reconstruction technique. Findings: No focal liver or splenic lesions No biliary tract dilatation. No pancreatic or adrenal mass 2 mm lower pole nonobstructing left renal calculus Right perinephric stranding 1 mm calculus No hydronephrosis or ureteral calculi Bladder intact No pelvic mass Advanced disc narrowing L4-L5 IMPRESSION: Tiny bilateral renal calculi Right perinephric stranding, consider right urinary tract infection Normal appendix No bowel obstruction
--- NOTE | 2025-05-25 13:35 | EKG_ITS ---
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: : 1965 Requested By: Gabe Cook (HEALTH PRACTICE MANAGER) Order Number: [id number] Reading MD: Gabe Cook (HEALTH PRACTICE MANAGER) Measurements Intervals [place] Rate: 111 P: 20 MN: 154 QRS: -18 QRSD: 76 T: 33 QT: 352 QTc: 479 Interpretive Statements SINUS TACHYCARDIA LOW QRS VOLTAGE IN PRECORDIAL LEADS [QRS DEFLECTION < 1.0 mV IN CHEST LEADS] POSSIBLE ANTERIOR MYOCARDIAL INFARCTION , PROBABLY OLD [30 ms Q WAVE IN V3/V4, OR R < 0.2 mV IN V4] INFERIOR MYOCARDIAL INFARCTION , PROBABLY OLD [40+ ms Q WAVE AND/OR ST/T ABNORMALITY IN II/aVF] Compared to ECG 05/17/2025 08:32:37 Low QRS voltage now present Myocardial infarct finding now present /store/S0/[id number]
--- NOTE | 2025-05-25 13:36 | PD.EDRME ---
Rapid Medical Screening Exam RME Arrival date/time: 05/25/25 13:09 59-year-old female presents to the Emergency Department for complaint of nausea vomiting abdominal pain Chief Complaint: Abdominal Pain Vital signs: Vital Signs Temperature 98.1 F 05/25/25 13:31 Pulse Rate 111 H 05/25/25 13:31 Respiratory Rate 20 05/25/25 13:31 Blood Pressure 94/67 05/25/25 13:31 Pulse Oximetry (%) 97 05/25/25 13:31 Oxygen Delivery Method Room Air 05/25/25 13:31
[2025-05-25 14:19] LABS: Basophils # (Auto) 0.0 Thou/mm3 (0.0-0.2); Basophils % (Auto) 0 % (0-2.5); Eosinophils # (Auto) 0.1 Thou/mm3 (0.0-0.5); Eosinophils % (Auto) 2 % (0-10); Hematocrit 37.3 % (36.0-46.0); Hemoglobin 12.8 g/dL (12.0-16.0); Immature Granulocytes Auto 0.05 Thou/mm3 (0.00-0.00); Lymphocytes # (Auto) 1.4 Thou/mm3 (1.0-4.8); Lymphocytes % (Auto) 26 % (10-50); Mean Corpuscular HGB Conc 34.3 g/dl (31.0-37.0); Mean Corpuscular Hemoglobin 31.8 pg (25.0-35.0); Mean Corpuscular Volume 93 fL (80-100); Monocytes # (Auto) 0.6 Thou/mm3 (0.0-0.8); Monocytes % (Auto) 11 % (0-12); Neutrophils # (Auto) 3.3 Thou/mm3 (1.8-7.7); Neutrophils % (Auto) 59 % (37-80); Nucleated Red Blood Cell # 0.00 Thou/mm3 (0.00-0.00); Nucleated Red Blood Cell % 0 /100 WBC (0); Platelet Count 528 Thou/mm3 (140-440); RDW Standard Deviation 47.2 fL (36.4-46.3); Red Blood Count 4.02 Miln/mm3 (4.00-5.20); White Blood Count 5.5 Thou/mm3 (3.6-11.0)
[2025-05-25 14:38] LABS: Alanine Aminotransferase 21 U/L (10-49); Albumin, Serum 3.5 gm/dL (3.5-5.0); Albumin/Globulin Ratio 1.5 (1.2-2.2); Alkaline Phosphatase 105 U/L (46-116); Anion Gap 14 (7-16); Aspartate Amino Transferase 32 U/L (0-34); BUN/Creatinine Ratio 8 Ratio (12-20); Bilirubin,Total 0.4 mg/dL (0.3-1.2); Blood Urea Nitrogen < 5 mg/dL (9-23); Calcium 9.2 mg/dL (8.3-10.6); Calcium (Corrected) 9.6 mg/dL (8.5-10.1); Carbon Dioxide 24.7 mMol/L (20.0-31.0); Chloride 97 mMol/L (98-107); Creatinine (Component) 0.6 mg/dL (0.6-1.3); Estimated Creatinine Clearance 103.0 mL/min (>60); Globulin 2.4 gm/dL (2.3-3.5); Glucose 341 mg/dL (74-106); Lipase 33 U/L (12-53); Osmolality,Calculated 282 (275-295); Potassium 3.2 mMol/L (3.4-5.1); Sodium 136 mMol/L (136-145); Total Protein 5.9 gm/dL (5.7-8.2); Troponin I < 0.002 ng/mL (0.0-0.045); eGFR > 60 See Note
[2025-05-25 14:40] LABS: Collection Type, Urine Clean Catch
[2025-05-25 14:51] LABS: Bacteria,Urine Rare; Bilirubin,Urine Negative (Negative); Blood,Urine Negative (Negative); Clarity,Urine Clear (Clear/Hazy); Color,Urine Yellow (Lt Yel-Yel); Culture Indicated,Urine Not Indicated; Glucose, Urine 4+ (Negative); Hyaline Casts,Urine < 1 /hpf (0-1); Ketones,Urine 2+ (Negative); Leukocyte Esterase,Urine Positive (Negative); Nitrite,Urine Negative (Negative); PH,Urine 6.0 (5.0-7.0); Protein,Urine Trace (Neg - Trace); RBC,Urine 3 /hpf (0-3); Specific Gravity,Urine 1.020 (1.001-1.035); Squamous Epithelial Cell,Urine 3 /hpf (0-5); Urobilinogen,Urine Negative mg/dL (0.0-1.0); WBC,Urine 9 /hpf (0-5)
--- NOTE | 2025-05-25 15:20 | PD.EDABDPN ---
ED Abdominal Pain RME/HPI General Chief Complaint: Abdominal Pain Stated complaint: ABD PAIN WITH NAUSEA [id number] Time seen by provider: 05/25/25 15:12 Arrival date/time: 05/25/25 13:09 Limitations: no limitations RME / HPI RME / HPI narrative: 05/25/25 13:09 59-year-old female presents to the Emergency Department for complaint of nausea vomiting abdominal pain DR. VALLE MAIN ED EVALUATION: 59 year old female with history of PUD, gastritis on Pantoprazole, diabetes, osteoarthritis s/p TKA on 05/08, hypothyroidism presents to the ED for evaluation of burning epigastric abdominal pain beginning several days ago. Pain rating as moderate that is not improved with home medications. Accompanied by nausea and decreased appetite. Patient states she had not experienced similar abdominal pain until after she had her right knee surgery 2 weeks ago. Additionally reports 1.5 months she had an EGD performed in [place] due to abdominal distention and told everything was okay , no inflammation or ulcer noted. Denies any fevers, chills, chest pain, cough, shortness of breath, or urinary symptoms. Related Data Home Medications ?Medication ?Instructions ?Recorded ?Confirmed atorvastatin 20 mg tablet 20 mg PO QDAY 05/04/25 05/16/25 pantoprazole 40 mg tablet,delayed 40 mg PO QAM 05/04/25 05/16/25 release (Protonix) sitagliptin phosphate 100 mg 100 mg PO QDAY 05/04/25 05/16/25 tablet (Januvia) Previous Rx's ?Medication ?Instructions ?Recorded acetaminophen 500 mg tablet 1,000 mg (2 x 500 mg) PO Q6H PRN 05/08/25 (Acetaminophen Extra Strength) pain #90 tabs aspirin 81 mg tablet,delayed 81 mg PO BID #60 tabs 05/08/25 release metformin 500 mg tablet,extended 500 mg PO QDAY Diabetes Mellitus 05/17/25 release 24 hr (Glucophage XR) Type II 1 month #30 tabs dicyclomine 20 mg tablet 20 mg PO BID #20 tabs 05/25/25 Allergies Allergy/AdvReac Type Severity Reaction Status Date / Time diclofenac Allergy Severe Hives Verified 05/25/25 13:14 Review of Systems Review of Systems Systems Reviewed: All systems reviewed, normal except as documented Past Medical History Past Medical History CARDIAC: Positive Cardiac Disorders, Hypercholesterolemia, Hypertension and Hypotension GASTROINTESTINAL: Positive Gastrointestinal Disorders, Ulcer (Peptic ulcer) and Obesity MUSCULOSKELETAL: Positive Musculoskeletal Disorders and Arthritis ENT: Positive Cataracts and Deafness (Bilateral) ENDOCRINE: Positive Endocrine Disorders, Diabetes Mellitus Type 2, Hyperthyroidism and Hypothyroidism OTHER HISTORY: Positive Hospitalization, Chicken Pox, Measles and Mumps Family History FAMILY HISTORY: Positive Family Surgery Surgical History SURGICAL: Positive Ear Surgery (Bilateral), Abdominal Surgery and Section Social History SMOKING STATUS: Never smoker SUBSTANCE USE: does not use ED Exam General Limitations: Present no limitations General appearance: Present alert, in no apparent distress and obese Head Head exam: Present atraumatic, normocephalic and normal inspection Eye Eye exam: Present normal appearance, PERRL and EOMI ENT ENT exam: Present normal exam, normal oropharynx and mucous membranes moist Neck Neck exam: Present normal inspection, full ROM and trachea midline Chest Chest inspection: Present normal inspection and symmetric chest wall rise Respiratory Respiratory exam: Present normal lung sounds bilaterally Cardiovascular Cardiovascular exam: Present regular rate, normal rhythm and normal heart sounds Abdominal Exam Abdominal exam: Present soft, tenderness (mild tenderness to deep palpation to the mid abdomen, no massess ) and normal bowel sounds Extremities Exam Extremities exam: Present normal inspection and full ROM Back Exam Back exam: Present normal inspection and full ROM Neurological Exam Neurological exam: Present alert, oriented X3 and CN II-XII intact Psychiatric Psychiatric exam: Present normal affect and normal mood Skin Skin exam: Present warm, dry, intact and normal color Course Quality Measures none Orders Category Date Time Status EKG (ED ONLY) *Do not use* NOW Care 05/25/25 13:[address] abdomen pelvis wo con Stat Exams 05/25/25 13:34 Completed EKG (ED Only) Stat Exams 05/25/25 13:35 Draft CBC Stat Lab 05/25/25 13:56 Completed Comprehensive Metabolic Panel Stat Lab 05/25/25 13:56 Completed Lipase Stat Lab 05/25/25 13:56 Completed Troponin I Stat Lab 05/25/25 13:56 Completed UA, C/S IF [Urinalysis, C/S if Indicated] Stat Lab 05/25/25 14:29 Completed Dicyclomine [Bentyl] Med 05/25/25 15:46 Discontinued 20 mg PO X1 ONE Metoclopramide Inj [Reglan Inj] Med 05/25/25 13:35 Discontinued 10 mg IM X1 ONE Vital Signs Vital signs: Vital Signs Temperature 98.1 F 05/25/25 13:31 Pulse Rate 111 H 05/25/25 13:31 Respiratory Rate 20 05/25/25 13:31 Blood Pressure 94/67 05/25/25 13:31 Pulse Oximetry (%) 97 05/25/25 13:31 Oxygen Delivery Method Room Air 05/25/25 13:31 Pulse ox is 97% on room air which is adequate. Abdominal Pain MDM MDM Narrative MDM Narrative:: Katherine Gallegos am scribing for and in the presence of Dr. Valle. Patient data External records reviewed:: [facility] previous records Clinical information provided by:: patient Social determinants that could affect healthcare access:: none Patient has the following chronic illnesses:: PUD, gastritis on Pantoprazole, diabetes, osteoarthritis s/p TKA on 05/08, hypothyroidism How is presenting disease/condition affected by chronic disease/condition?: exacerbated by Evaluation data The following diagnostics were reviewed and interpreted by me:: lab results, radiology exam(s) and EKG tracing(s) (Sinus tachycardia, rate 111, loq QRS voltage precordial leads, no STEMI. ) Lab and/or radiology exams considered but not ordered:: None Interpretation Summary: Ordering Physician: Joey RODRIGUEZ)Gabe NP Date of Service: 05/25/25 Procedure(s): CT abdomen pelvis wo [facility] Accession Number(s): [id number] cc: Joey RODRIGUEZ)Gabe NP; Sal Sarah MD~ Examination: CT abdomen and pelvis without contrast. Coronal 3-D reconstructions. Sagittal 2-D reconstructions. Date and time of exam: May 25, 2025, 1414 hours, comparison 05/15/2025 INDICATIONS: Onset generalized abdominal pain today CTDI: vol (mGy): 12.3 DLP: (mGycm): 754 Technique: Axial images of the abdomen have been obtained, 3 mm slice thickness Intravenous contrast material has not been administered. Low dose protocols were performed. One or more of the following dose reduction techniques were used; automated exposure control, adjustment of the mA and/or KV according to patient size, use of iterative reconstruction technique. Findings: No focal liver or splenic lesions No biliary tract dilatation. No pancreatic or adrenal mass 2 mm lower pole nonobstructing left renal calculus Right perinephric stranding 1 mm calculus No hydronephrosis or ureteral calculi Bladder intact No pelvic mass Advanced disc narrowing L4-L5 IMPRESSION: Tiny bilateral renal calculi Right perinephric stranding, consider right urinary tract infection Normal appendix No bowel obstruction Dictated By: Sal Sarah MD Signed By: <Electronically signed by Sal Sarah MD in OV> 05/25/25 1436 Medications / Prescriptions Medications or Prescriptions considered but not ordered:: None Medication administrations:: Medication Administration History Discontinued Medications Dicyclomine HCl (Dicyclomine 10 Mg Capsule) 20 mg PO X1 ONE Stop: 05/25/25 15:47 Metoclopramide HCl (Metoclopramide Inj 5 Mg/Ml Vial 2 Ml) 10 mg IM X1 ONE; Protocol Stop: 05/25/25 13:36 Last Admin: 05/25/25 15:43 Dose: 10 mg Documented By: See above Consultations Consultation(s) initiated? (list below): No Diagnosis Differential diagnosis abdominal pain: abdominal pain, calculus of kidney, constipation, gastroenteritis and other Most likely diagnosis given after review of the tests above:: Abdominal pain Admission Indicated Admission indicated?: not indicated Admission Request Was there a request for admission?: No Disposition Plan Disposition Plan: Discharge Discharge Attestation Discharge Attestation: The patient and all family members were given an opportunity to ask questions and understood the discharge instructions. Discharge instructions specifically effects, indications for sooner follow up or return to the emergency department, and the expected course of current diagnosis. Patient condition: Stable Discharge Plan Plan Patient Disposition: HOME (Self Care) Prescriptions/Referrals Prescriptions/Med Rec: New dicyclomine 20 mg tablet 20 mg PO BID Qty: 20 0RF No Action Januvia 100 mg tablet 100 mg PO QDAY pantoprazole [Protonix] 40 mg tablet,delayed release (DR/EC) 40 mg PO QAM atorvastatin 20 mg tablet 20 mg PO QDAY aspirin 81 mg tablet,delayed release (DR/EC) 81 mg PO BID Qty: 60 0RF acetaminophen [Acetaminophen Extra Strength] 500 mg tablet 1,000 mg PO Q6H MDD 1000mg PRN (Reason: pain) Qty: 90 0RF metformin [Glucophage XR] 500 mg tablet extended release 24 hr 500 mg PO QDAY 30 Days Qty: 30 0RF Problem List Clinical Impression: Abdominal pain Patient/Caregiver Discharge Instructions Education Materials: Abdominal Pain Additional Instructions: Stop your Metformin and see your doctor torstenorrow for alternate blood sugar control and referral to GI. Consider alternative medications similar to Ozempic. You can return to the emergency department sooner if symptoms worsen or if you notice any new, concerning issues. Print Language: Emirati Stand Alone Forms: [facility] Info., Patient Portal Info Letter
[2025-05-25 15:21] VITALS: BP 106/72; PULSE 111; RESP 19; TEMP 36.6; O2SAT 97
[2025-05-25] MEDS: METOCLOPRAMIDE INJ 5 MG/ML VIAL 2 ML 10 MG IM (15:43)
[2025-05-25] MEDS: DICYCLOMINE 10 MG CAPSULE 20 MG PO (15:57)
== END 2025-05-25 17:17 | disposition home or self-care (01) ==
PROVIDERS: Nurse Practitioner Primary Care; Emergency Provider Family Medicine
DX: N20.0 Calculus of kidney (principal); R10.9 Unspecified abdominal pain; R00.0 Tachycardia, unspecified; E78.00 Pure hypercholesterolemia, unspecified; I10 Essential (primary) hypertension
CPT/HCPCS: 36415; 74176; 80053; 81001; 83690; 84484; 85025; 93005; 96372; 99283; J2765; A9270

== ENCOUNTER 2025-06-06 13:02 | Outpatient (AMB) | payer MEDICAID, SELFPAY ==
--- NOTE | 2025-06-06 13:17 | ORTHONT_ITS ---
Vital signs 06/06/25 13:18 Height 1.55 m Height Method Measured Weight 87.146 kg Weight Measurement Method Standing Scale BMI 36.2 BP 111/67 Blood Pressure Source Automatic Cuff Blood Pressure Location Left Upper Arm Position Sitting Respiration 18 Pulse 120 H Pulse Source Monitor Temp 98.5 F Temp Source Temporal Artery Scan Pulse Oximetry (%) 95 Oxygen Delivery Method Room Air Med/Allergies Allergies & Medications Allergies diclofenac Allergy (Severe, Verified 06/06/25 13:19) Hives Medication Reconciliation atorvastatin 20 mg tablet 20 mg PO QDAY 05/04/25 [History Confirmed 06/06/25] pantoprazole 40 mg tablet,delayed release (Protonix) 40 mg PO QAM 05/04/25 [History Confirmed 06/06/25] sitagliptin phosphate 100 mg tablet (Januvia) 100 mg PO QDAY 05/04/25 [History Confirmed 06/06/25] acetaminophen 500 mg tablet (Acetaminophen Extra Strength) 1,000 mg (2 x 500 mg) PO Q6H PRN pain #90 tabs 05/08/25 [Rx Confirmed 06/06/25] aspirin 81 mg tablet,delayed release 81 mg PO BID #60 tabs 05/08/25 [Rx Confirmed 06/06/25] metformin 500 mg tablet,extended release 24 hr (Glucophage XR) 500 mg PO QDAY Diabetes Mellitus Type II 1 month #30 tabs 05/17/25 [Rx Confirmed 06/06/25] dicyclomine 20 mg tablet 20 mg PO BID #20 tabs 05/25/25 [Rx Confirmed 06/06/25] Exam Exam Patient is in no acute distress and is cooperative with the examination today. Breathing is nonlabored. Patient has a normal mood and affect. Bilateral extremities were evaluated and demonstrates sensation intact to light touch. Palpable pedal pulses are present. No significant edema is present. Bilateral hips were examined. The patient has no pain with log roll of the hips. Internal rotation to 30 degrees and external rotation to 30 degrees is painless. Negative FADIR. Right knee was examined today. The right knee is in neutral alignment. The incision is clean dry and intact. Assessment and Plan Problem List (1) Degenerative arthritis of knee, bilateral: Status: Acute Plan: Patient is a pleasant 59-year-old female with bilateral knee pain and bilateral knee arthritis. She is s/p R TKA and is she is doing well. Her main issues are gastritis currently when she is admitted to the hospital for. We will see her back in 4 weeks. She should start outpatient physical therapy Office Procedures GNS Level of Care Nursing/Assessment Patient Status: Established Patient Nursing Assessment/Reassesment: Medication Reconciliation, Update PMH in EMR and Vital Signs Coordination of Care: Complex Care and Chronic Disease 1-5, Education Complex Pt/Fam, Consent,records obtained, informed consent, Results/Orders obtained and Staff clarify orders Special Needs: Language special needs Established Patient Charge Established Patient Point Assignment: 95 Established Patient Point Charge: EP Level 3 (80-115) MA Intake Visit Data Collection New Patient or Established: Established Patient (seen at [facility] within 3 years) Reason for Visit:: RIGHT TKA POST OP Seen by Clinical Staff ONLY (RN/MA): No 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 Required: Yes PCP or OBGYN visit in last 3 months: Yes Hx Now: No Do You Feel Safe at Home: Yes Authorities Contacted: N/A Questionairres Past Medical History Past Medical History Have you ever been diagnosed with any of the following: Neurological Problems Seizures: No Cardiology Problems Hypercholesterolemia: Yes Congestive Heart Failure: No Hypertension: Yes Hypotension: Yes Respiratory Problems Chronic Obstructive Pulmonary Disease (COPD): No Smoking: No Smoking Cessation Counseling: No Smoking Exposure: No Stomache/Intestinal Problems Hepatitis: No Ulcer: Yes (Peptic ulcer) Obesity: Yes Genital/Urinary Problems Renal Disease: No Musculoskeletal Problems Arthritis: Yes Head,Eye,Nose,Throat Problems Cataracts: Yes Glaucoma: No Deafness: Yes (Bilateral) Endocrine Problems Diabetes Mellitus Type 1: No Diabetes Mellitus Type 2: Yes Hyperthyroidism: Yes Hypothyroidism: Yes Other Problems Hospitalization: Yes Shingles: No Falls: No Blood Transfusions: No Blood Transfusion Reaction: No Anesthesia Reactions: No Chicken Pox: Yes Measles: Yes Mumps: Yes Cancer: No Subjective Visit Visit for: follow up visit and knee Immunization / Flu Flu Vaccine in the Last 12 Months: No Flu Vaccine Exclusion Criteria: Refused by Patient History of Present Illness Chief complaint: RIGHT TKA POST OP Date of injury / onset of symptoms: 10+ YEARS Patient is 2 weeks postop s/p R TKA. She is doing well. 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: Yes Additional comments: WALKER WAS GIVEN TO PT FOR SX Pain Pain level (0-10): 9 Pain duration: ALL DAY Pain location: inside (medial), outside (lateral) and anterior Pain quality: sharp, dull, aching and other (specify) (SWELLING) Pain timing: night, increases with activity and stairs Associated signs & symptoms: numbness and weakness Ambulatory data Ambulatory device: none Treatments Number of previous injections: 2 Improvement with previous injections: No Number of Physical Therapy sessions: 0 Improvement with PT: No Improvement with NSAIDS: no Review of Systems Review of Systems: All systems negative unless otherwise noted in HPI.
[2025-06-06 13:18] VITALS: BP 111/67; PULSE 120; RESP 18; TEMP 36.9; O2SAT 95; BMI 36.2
== END 2025-06-06 13:40 | disposition home or self-care (01) ==
PROVIDERS: PCP Nurse Practitioner Family; Referring Provider Nurse Practitioner Family; Supervising Provider Orthopaedic Surgery Adult Reconstructive Orthopaedic Surgery; Visit Provider Orthopaedic Surgery Adult Reconstructive Orthopaedic Surgery
DX: Z47.1 Aftercare following joint replacement surgery (principal); Z96.651 Presence of right artificial knee joint; M25.562 Pain in left knee; M17.12 Unilateral primary osteoarthritis, left knee; I10 Essential (primary) hypertension; E11.9 Type 2 diabetes mellitus without complications; Z79.84 Long term (current) use of oral hypoglycemic drugs; E66.9 Obesity, unspecified; Z68.36 Body mass index [BMI] 36.0-36.9, adult
CPT/HCPCS: 99213; G0463

== ENCOUNTER 2025-06-29 13:49 | Outpatient (AMB) | payer MEDICAID, SELFPAY ==
--- NOTE | 2025-06-29 14:07 | PD.ORTHCLVIS ---
Med/Allergies Allergies & Medications Allergies diclofenac Allergy (Severe, Verified 06/06/25 13:19) Hives Exam Exam Patient is in no acute distress and is cooperative with the examination today. Breathing is nonlabored. Patient has a normal mood and affect. Bilateral extremities were evaluated and demonstrates sensation intact to light touch. Palpable pedal pulses are present. No significant edema is present. Bilateral hips were examined. The patient has no pain with log roll of the hips. Internal rotation to 30 degrees and external rotation to 30 degrees is painless. Negative FADIR. Right knee was examined today. The right knee is in neutral alignment. The incision is clean dry and intact. ROM is 0-105 degrees Assessment and Plan Problem List (1) Degenerative arthritis of knee, bilateral: Status: Acute Plan: Patient is a pleasant 59-year-old female with bilateral knee pain and bilateral knee arthritis. She is s/p R TKA and is she is doing well. She should start outpatient physical therapy we will see her in 8 weeks for routine follow Questionairres Past Medical History Past Medical History Have you ever been diagnosed with any of the following: Neurological Problems Seizures: No Cardiology Problems Hypercholesterolemia: Yes Congestive Heart Failure: No Hypertension: Yes Hypotension: Yes Respiratory Problems Chronic Obstructive Pulmonary Disease (COPD): No Smoking: No Smoking Cessation Counseling: No Smoking Exposure: No Stomache/Intestinal Problems Hepatitis: No Ulcer: Yes (Peptic ulcer) Obesity: Yes Genital/Urinary Problems Renal Disease: No Musculoskeletal Problems Arthritis: Yes Head,Eye,Nose,Throat Problems Cataracts: Yes Glaucoma: No Deafness: Yes (Bilateral) Endocrine Problems Diabetes Mellitus Type 1: No Diabetes Mellitus Type 2: Yes Hyperthyroidism: Yes Hypothyroidism: Yes Other Problems Hospitalization: Yes Shingles: No Falls: No Blood Transfusions: No Blood Transfusion Reaction: No Anesthesia Reactions: No Chicken Pox: Yes Measles: Yes Mumps: Yes Cancer: No Subjective Visit Visit for: follow up visit and knee Immunization / Flu Flu Vaccine in the Last 12 Months: No Flu Vaccine Exclusion Criteria: Refused by Patient History of Present Illness Chief complaint: RIGHT TKA POST OP Date of injury / onset of symptoms: 10+ YEARS Patient is 8 weeks postop s/p R TKA. She is doing well. 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 Additional comments: WALKER WAS GIVEN TO PT FOR SX Pain Pain level (0-10): 9 Pain duration: ALL DAY Pain location: inside (medial), outside (lateral) and anterior Pain quality: sharp, dull, aching and other (specify) (SWELLING) Pain timing: night, increases with activity and stairs Associated signs & symptoms: numbness and weakness Ambulatory data Ambulatory device: none Treatments Number of previous injections: 2 Improvement with previous injections: No Number of Physical Therapy sessions: 0 Improvement with PT: No Improvement with NSAIDS: no Review of Systems Review of Systems: All systems negative unless otherwise noted in HPI.
[2025-06-29 14:14] VITALS: BP 104/66; PULSE 114; RESP 18; TEMP 36.7; O2SAT 97; BMI 34.3
--- NOTE | 2025-06-29 14:16 | ORTHONT_ITS ---
Vital signs 06/29/25 14:14 06/29/25 14:18 Height 1.55 m Height Method Measured Weight 82.554 kg Weight Measurement Method Standing Scale BMI 34.3 BP 104/66 104/66 Blood Pressure Source Automatic Cuff Blood Pressure Location Left Upper Arm Position Sitting Respiration 18 18 Pulse 114 H 114 H Pulse Source Monitor Temp 98.1 F 98.1 F Temp Source Temporal Artery Scan Pulse Oximetry (%) 97 97 Oxygen Delivery Method Room Air Med/Allergies Allergies & Medications Allergies diclofenac Allergy (Severe, Verified 06/29/25 14:16) Hives Medication Reconciliation atorvastatin 20 mg tablet 20 mg PO QDAY 05/04/25 [History Confirmed 06/29/25] pantoprazole 40 mg tablet,delayed release (Protonix) 40 mg PO QAM 05/04/25 [History Confirmed 06/29/25] sitagliptin phosphate 100 mg tablet (Januvia) 100 mg PO QDAY 05/04/25 [History Confirmed 06/29/25] acetaminophen 500 mg tablet (Acetaminophen Extra Strength) 1,000 mg (2 x 500 mg) PO Q6H PRN pain #90 tabs 05/08/25 [Rx Confirmed 06/29/25] aspirin 81 mg tablet,delayed release 81 mg PO BID #60 tabs 05/08/25 [Rx Confirmed 06/29/25] dicyclomine 20 mg tablet 20 mg PO BID #20 tabs 05/25/25 [Rx Confirmed 06/29/25] Assessment and Plan Problem List (1) Degenerative arthritis of knee, bilateral: Status: Acute Office Procedures GNS Level of Care Nursing/Assessment Patient Status: Established Patient Nursing Assessment/Reassesment: Medication Reconciliation, Update PMH in EMR and Vital Signs Coordination of Care: Complex Care and Chronic Disease 1-5, Education Complex Pt/Fam, Consent,records obtained, informed consent, Results/Orders obtained and Staff clarify orders Special Needs: Language special needs Established Patient Charge Established Patient Point Assignment: 95 Established Patient Point Charge: EP Level 3 (80-115) MA Intake Visit Data Collection New Patient or Established: Established Patient (seen at [facility] within 3 years) Reason for Visit:: 8 WEEK POST OP TKA Seen by Clinical Staff ONLY (RN/MA): No 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 PCP or OBGYN visit in last 3 months: Yes Hx Now: No Do You Feel Safe at Home: Yes Authorities Contacted: N/A Questionairres Past Medical History Past Medical History Have you ever been diagnosed with any of the following: Neurological Problems Seizures: No Cardiology Problems Hypercholesterolemia: Yes Congestive Heart Failure: No Hypertension: Yes Hypotension: Yes Respiratory Problems Chronic Obstructive Pulmonary Disease (COPD): No Smoking: No Smoking Cessation Counseling: No Smoking Exposure: No Stomache/Intestinal Problems Hepatitis: No Ulcer: Yes (Peptic ulcer) Obesity: Yes Genital/Urinary Problems Renal Disease: No Musculoskeletal Problems Arthritis: Yes Head,Eye,Nose,Throat Problems Cataracts: Yes Glaucoma: No Deafness: Yes (Bilateral) Endocrine Problems Diabetes Mellitus Type 1: No Diabetes Mellitus Type 2: Yes Hyperthyroidism: Yes Hypothyroidism: Yes Other Problems Hospitalization: Yes Shingles: No Falls: No Blood Transfusions: No Blood Transfusion Reaction: No Anesthesia Reactions: No Chicken Pox: Yes Measles: Yes Mumps: Yes Cancer: No Subjective Visit Visit for: follow up visit and knee Immunization / Flu Flu Vaccine in the Last 12 Months: No Flu Vaccine Exclusion Criteria: No Exclusion Criteria History of Present Illness Chief complaint: 8 WEEK POST OP TKA Personal History Red flag PMH: none Pain Pain level (0-10): 0 Ambulatory data Ambulatory device: none Treatments Improvement with previous injections: No Improvement with PT: No Improvement with NSAIDS: no Review of Systems Review of Systems: All systems negative unless otherwise noted in HPI.
[2025-06-29 14:18] VITALS: BP 104/66; PULSE 114; RESP 18; TEMP 36.7; O2SAT 97
== END 2025-06-29 14:10 | disposition home or self-care (01) ==
LOC: HODSRG 13:49
PROVIDERS: PCP Nurse Practitioner Family; Referring Provider Nurse Practitioner Family; Supervising Provider Orthopaedic Surgery Adult Reconstructive Orthopaedic Surgery; Visit Provider Orthopaedic Surgery Adult Reconstructive Orthopaedic Surgery
DX: M17.0 Bilateral primary osteoarthritis of knee (principal)
CPT/HCPCS: 99213; G0463

== ENCOUNTER 2025-07-06 13:30 | Outpatient (RCR) | payer MEDICAID, SELFPAY ==
--- NOTE | 2025-06-29 11:44 | PTNOTE_ITS ---
PT OP Initial Eval Patient Information Outpatient Physical Therapy Treatment Date: 06/29/25 Visit Reasons: post op tka Medical Diagnosis: Z96.651 Treatment Dx #1: R knee pain Start of Care: 06/29/25 Date of Onset: 05/08/25 Smoking Status Smoking Status: Never smoker Initial Assessment Subjective: Pt is 60 yr old uruguayan speaking female s/p R TKA ambulating with FWW. Pt is ambulating 5-10 minutes limited by pain. She has had other medical problems related to DM that has not allowed her to come to therapy. Her son helps her with all ADL's and bathing. PMH: HTN, DM, hypothyroidism Pt goal: to walk further with less pain in R knee Objective: R knee AROM: ? Flexion: 109 deg ? Extension: -3 deg ? SLR: ? 65 deg with slight extensor lag ? Strength: ? Quads and hamstrings 3+/5 ? Antalgic gait pattern with decreased WB tolerance on R LE and FWW Assessment: Pt presentation consistent with post op TKA with decreased ROM, strength ? and WB tolerance. Pt lacks a few degrees of knee extension and flexion is limited by ? myofascial limitations and pain.? Pt requires skilled therapy to improve ROM ? and strength and has good rehab potential.? Eval followed by HEP with printout. Short Term and Snf Goals 1.? Ind with HEP 2.? Improved knee ROM to full extension to 115 deg flexion 3.? Improved quad and hamstring strength to 4/5 4.? Improved ambulatory tolerance to community distances with symmetrical gait pattern Treatment Plan 1. Manual therapy ? 2. Therex ? 3. Modalities as indicated, moist heat, ice, estim Frequency and Duration: 2x a week for 18 Rx sessions plus the evaluation Certification Dates: 06/29/25 to 09/27/25 Procedure Charges OP PT Eval Mod Complex 30 minutes: Yes
--- NOTE | 2025-07-04 14:58 | PT.ODAYNRPT ---
PT Outpatient Daily Note OP Daily Note Outpatient Physical Therapy Treatment Date: 07/04/25 Visit Reasons: post op tka Subjective: Same as time of evaluation Objective: See F/S for therex Assessment: Good flexion ROM with strap to 115 deg Plan: Continue per POC Length of Time (minutes) of Treatment: 30 Minutes Procedure Charges Therapeutic Exercise 30 minutes: Yes
--- NOTE | 2025-07-06 17:18 | PT.ODAYNRPT ---
PT Outpatient Daily Note OP Daily Note Outpatient Physical Therapy Treatment Date: 07/06/25 Visit Reasons: post op tka Subjective: Pt c/o R knee soreness after last visit Objective: See F/S for therex Assessment: Good flexion ROM with strap to 115 deg. She can ambulate with short steps without the walker but looks unsteady. Plan: Continue per POC Length of Time (minutes) of Treatment: 30 Minutes Procedure Charges Therapeutic Exercise 30 minutes: Yes
== END 2025-07-16 23:59 | disposition home or self-care (01) ==
LOC: CPTX 13:30
PROVIDERS: PCP Orthopaedic Surgery Adult Reconstructive Orthopaedic Surgery; Referring Provider Orthopaedic Surgery Adult Reconstructive Orthopaedic Surgery; Visit Provider Orthopaedic Surgery Adult Reconstructive Orthopaedic Surgery
DX: Z47.1 Aftercare following joint replacement surgery (principal); Z96.651 Presence of right artificial knee joint; M25.561 Pain in right knee; I10 Essential (primary) hypertension; E11.9 Type 2 diabetes mellitus without complications
CPT/HCPCS: 97110; 97162